=== PATIENT | female | born 1950 | race Caucasian/White ===

== ENCOUNTER 2019-05-30 16:38 | Outpatient (CLI) | payer MEDICARE, OTHER, SELFPAY ==
--- NOTE | 2019-05-30 | CTR_ITS ---
PROCEDURE INFORMATION: Exam: CT Abdomen With Contrast Exam date and time: 05/30/2019 4:57 PM Age: 69 years old Clinical indication: Abdominal pain; Generalized; Prior surgery; Surgery date: 6+ months; Surgery type: Gb; Patient HX: Constant abd pain luq; Additional info: Abdomen pain TECHNIQUE: Imaging protocol: Computed tomography images of the abdomen with intravenous contrast. Total DLP: 438.6 mGy-cm Radiation optimization: All CT scans at this facility use at least one of these dose optimization techniques: automated exposure control; mA and/or kV adjustment per patient size (includes targeted exams where dose is matched to clinical indication); or iterative reconstruction. Contrast material: OMNIPAQUE 300; Contrast volume: 95 ml; Contrast route: IV; COMPARISON: CT abdomen pelvis w con* [id number] 05/31/2018 10:54 AM FINDINGS: Lungs: There is bronchiectasis with mild peribronchial thickening/pneumonitis. There is a mild tree-in-bud appearance in the right middle lobe and lingula. Liver: There is increasing hepatosplenomegaly. No new or enlarging liver nodule. The length the liver now measures 25.3 cm today compared to 20/2 0.8 previously. The spleen now measures 22.5 cm in length today compared 18 cm previously. Gallbladder and bile ducts: There has been a cholecystectomy. There is no common bile duct dilation. Pancreas: Normal. No ductal dilation. Spleen: There is a new wedge-shaped area of decreased density in the spleen concerning for new splenic infarct image 33. Adrenals: Normal. No mass. Kidneys and ureters: There is no evidence of hydronephrosis. There is no evidence of renal calcifications. There is no evidence of hydronephrosis. There is no evidence of renal calcifications. Stomach and bowel: Normal. No obstruction. No mucosal thickening. Intraperitoneal space: Unremarkable. No free air. No significant fluid collection. Lymph nodes: Adenopathy in the upper abdomen is increasing. For example along the gastrohepatic ligament image 17, there is a lymph node measuring 12 mm in short axis today that previously measured 6 mm. A lymph node just medial to the spleen on image 21 today measures 1.4 cm in short axis compared to 2.8 cm previously. Subcentimeter lymph nodes are noted in the retroperitoneum 2. Although these are not all pathologically enlarged, the lymph nodes are more prominent with the largest in the left periaortic space image 35 measuring 1.2 cm in short axis today the previously measured 0.6 cm previously. Vasculature: The aorta demonstrates moderate atherosclerotic calcification. Bones/joints: Disc space narrowing and prominent degenerative changes at L4-L5 are stable. No new fracture or bony destruction. Soft tissues: Unremarkable. Other findings: A small hiatal hernia is present. CT/CT abdomen w con* [id number] IMPRESSION: 1. Mild pneumonitis. 2. There is increasing hepatosplenomegaly. 3. Wedge-shaped hypodensity in the enlarged spleen concerning for new splenic infarct. 4. Increasing adenopathy. Radiation Dose CTDIVOL = (mGy): DLP = 438.6 (mGy-cm)
[2019-05-30] MEDS: iohexol 300 mg/mL 100 mL Btl IV (16:58)
== END 2019-05-30 16:39 | disposition home or self-care (01) ==
LOC: RAD 16:42
PROVIDERS: Family Provider Family Medicine; PCP Family Medicine; Visit Provider Family Medicine
DX: J18.9 Pneumonia, unspecified organism (principal); R16.2 Hepatomegaly with splenomegaly, not elsewhere classified; D73.9 Disease of spleen, unspecified; R59.9 Enlarged lymph nodes, unspecified; R10.84 Generalized abdominal pain
CPT/HCPCS: 74160

== ENCOUNTER 2019-05-30 18:05 | Emergency (ER) | payer MEDICARE, OTHER, SELFPAY ==
[2019-05-30 18:25] VITALS: BP 128/71; PULSE 85; RESP 20; TEMP 36.4; O2SAT 93; BMI 25.4
[2019-05-30 18:54] LABS: Basophils # 0.1 10^3/uL (0.0-0.1); Basophils % 1.2 %; Eosinophils # 0.2 10^3/uL (0.0-0.8); Eosinophils % 3.6 %; Hematocrit 29.8 % (37.0-47.0); Hemoglobin 9.1 g/dL (11.5-15.3); Lymphocytes # 1.2 10^3/uL (0.8-4.8); Lymphocytes % 29.7 %; Mean Corpuscular HGB Conc 30.5 g/dL (30.0-36.0); Mean Corpuscular Hemoglobin 23.2 pg (28.0-34.0); Mean Corpuscular Volume 75.8 fL (81-99); Mean Platelet Volume 9.2 fL (7.4-10.4); Monocytes # 0.4 10^3/uL (0.2-0.9); Monocytes % 9.9 %; Neutrophils # 2.3 10^3/uL (1.8-7.7); Neutrophils % 54.9 %; Nucleated Red Blood Cells % 0 %; Platelet Count 134 10^3/cmm (130-400); Red Blood Count 3.93 10^6/uL (4.1-5.3); Red Cell Distribution Width 18.2 % (12.1-15.1); White Blood Count 4.1 10^3/uL (4.0-10.0)
[2019-05-30 19:12] LABS: Alanine Aminotransferase < 5 U/L (0-33); Albumin Level 4.1 g/dL (3.5-5.2); Alkaline Phosphatase 116 IU/L (35-105); Anion Gap 16.4 (5-19); Aspartate Amino Transferase 6 U/L (0-32); Blood Urea Nitrogen 15 mg/dL (8-23); Calcium 9.5 mg/dL (8.5-10.5); Carbon Dioxide 28 mmol/L (22-29); Chloride 90 mmol/L (98-107); Globulin 2.4 g/dL (1.3-4.6); Glomerular Filtration Rate 71.5 mL/min (90-130); Glucose 114 mg/dL (74-106); Lipase 36 U/L (13-60); Potassium 4.4 mmol/L (3.5-5.1); Sodium 130 mmol/L (136-145); Total Bilirubin 0.6 mg/dL (0.15-1.2); Total Protein 6.5 g/dL (6.6-8.7)
== END 2019-05-30 21:58 | disposition left against medical advice (07) ==
LOC: ER 18:36
PROVIDERS: Emergency Medicine; Emergency Provider Family Medicine; Family Provider Family Medicine; PCP Family Medicine
DX: Z53.21 Procedure and treatment not carried out due to patient leaving prior to being seen by health care provider (principal)
CPT/HCPCS: 36415; 80053; 83690; 85025; 99281

== ENCOUNTER 2019-06-03 15:37 | Outpatient (CLI) | payer MEDICARE, OTHER, SELFPAY ==
--- NOTE | 2019-06-03 15:41 | USCV_ITS ---
Celsa Snowden Age: 69 Gender: F : 1950 Exam Date: 06/03/2019 15:54 Ordering Phys: Adonis Mahajan MD Technologist: Kristy Pereira [place] [facility] [place]: SPLENIC INFAR[place] BP: / HR: 92 Rhythm: Sinus Technical Quality: Adequate MEASUREMENTS (Male / Female) Normal Values 2D ECHO LV Diastolic Diameter PLAX 3.0 cm 4.2 - 5.9 / 3.9 - 5.3 cm LV Systolic Diameter PLAX 1.9 cm IVS Diastolic Thickness 1.3 cm 0.6 - 1.0 / 0.6 - 0.9 cm IVS Systolic Thickness 2.0 cm LVPW Diastolic Thickness 1.6 cm 0.6 - 1.0 / 0.6 - 0.9 cm LVPW Systolic Thickness 1.4 cm LVOT Diameter 2.0 cm LV Ejection Fraction 2D Teich 66.3 % LV Ejection Fraction MOD 2C 53.4 % LV Ejection Fraction 2C AL 54.3 % LA Diameter 3.1 cm LA Width 2.6 cm LA Height 3.6 cm RA Width 3.1 cm RA Height 3.3 cm Aorta at Sinotubular Diameter 2.6 cm M-MODE LV Diastolic Diameter MM 5.5 cm 4.2 - 5.9 / 3.9 - 5.3 cm LV Systolic Diameter MM 3.6 cm LV Ejection Fraction MM Teich 62.8 % IVS Diastolic Thickness MM 0.9 cm 0.6 - 1.0 / 0.6 - 0.9 cm IVS Systolic Thickness MM 1.1 cm LVPW Diastolic Thickness MM 0.9 cm 0.6 - 1.0 / 0.6 - 0.9 cm LVPW Systolic Thickness MM 1.6 cm RV Diastolic Diameter MM 1.5 cm Aortic Annulus Diameter 3.1 cm LA Ao Ratio MM 1.0 MV E Point Septal Separation 1.4 cm DOPPLER AV Peak Velocity 157.0 cm/s LVOT Peak Velocity 101.0 cm/s AV Area Cont Eq vti 2.6 cm squared AV Area Cont Eq pk 2.1 cm squared MV Area PHT 5.5 cm squared Mitral E to A Ratio 0.8 MV E' Velocity 16.0 cm/s Mitral E to MV E' Ratio 4.9 Mitral E to LV E' Lateral Ratio 4.3 Mitral E to LV E' Septal Ratio 5.7 TR Peak Velocity 203.0 cm/s TR Peak Gradient 16.5 mmHg TR Mean Velocity 158.2 cm/s TR Mean Gradient 10.7 mmHg TR Velocity Time Integral 44.8 cm TV Peak E Velocity 73.0 cm/s Right Atrial Pressure 3.0 mmHg Pulmonary Artery Systolic Pressu 19.5 mmHg PV Peak Velocity 71.0 cm/s RV Acceleration Time 0.1 s RV Ejection Time 0.3 s RV AcT/ET 0.5 FINDINGS Left Ventricle Normal left ventricular size and systolic function, EF 60 %. No regional wall motion abnormalities. Grade I/IV diastolic dysfunction (abnormal relaxation filling pattern), normal to mildly elevated filling pressures. Mild left ventricular hypertrophy. Right Ventricle Normal right ventricular size and systolic function. Right Atrium The right atrium is normal in size. Left Atrium The left atrium is normal in size. Mitral Valve Mild mitral annular calcification. Mild mitral valve regurgitation. Aortic Valve Could not be visualized well Tricuspid Valve Trace tricuspid valve regurgitation. Pulmonic Valve Structurally normal pulmonic valve without significant stenosis. There is no pulmonic regurgitation. Pericardium Normal pericardium without effusion. Aorta Normal ascending aorta dimension. CONCLUSIONS Normal left ventricular size and systolic function, EF 60 %. No regional wall motion abnormalities. Grade I/IV diastolic dysfunction (abnormal relaxation filling pattern), normal to mildly elevated filling pressures. Mild left ventricular hypertrophy. Mild mitral annular calcification. Mild mitral valve regurgitation. Trace tricuspid valve regurgitation. There is no pericardial effusion. Possibly normal PA pressure. The calculation could be misleading because of the poor Doppler signals. No previous study is available for comparison. Technically difficult study because of the poor ultrasonic window. Dr Alexander Lerner MD FACC (Electronically Signed) Final Date: 03 June 2019 18:43 S
== END 2019-06-03 15:38 | disposition home or self-care (01) ==
LOC: RAD 15:38
PROVIDERS: Family Provider Family Medicine; PCP Family Medicine; Visit Provider Family Medicine
DX: D73.5 Infarction of spleen (principal); I07.1 Rheumatic tricuspid insufficiency; I34.0 Nonrheumatic mitral (valve) insufficiency
CPT/HCPCS: 93306

== ENCOUNTER 2019-06-09 12:17 | Outpatient (CLI) | payer MEDICARE, OTHER, SELFPAY ==
[2019-06-09 13:00] LABS: Eosinophils # 0.1 10^3/uL (0.0-0.8); Eosinophils % 3.4 %; Hematocrit 27.2 % (37.0-47.0); Hemoglobin 8.2 g/dL (11.5-15.3); Lymphocytes # 1.1 10^3/uL (0.8-4.8); Lymphocytes % 29.2 %; Mean Corpuscular HGB Conc 30.1 g/dL (30.0-36.0); Mean Corpuscular Hemoglobin 23.6 pg (28.0-34.0); Mean Corpuscular Volume 78.2 fL (81-99); Mean Platelet Volume 9.3 fL (7.4-10.4); Monocytes # 0.3 10^3/uL (0.2-0.9); Monocytes % 8.9 %; Neutrophils # 2.2 10^3/uL (1.8-7.7); Neutrophils % 56.7 %; Nucleated Red Blood Cells % 0 %; Platelet Count 126 10^3/cmm (130-400); Red Blood Count 3.48 10^6/uL (4.1-5.3); Red Cell Distribution Width 18.1 % (12.1-15.1); White Blood Count 3.8 10^3/uL (4.0-10.0)
[2019-06-09 13:38] LABS: Slide Review Slide Review Perform
--- NOTE | 2019-06-09 17:14 | ONC CON_ITS ---
Dr. Fuller New Patient Note Patient: Celsa Snowden Unit #: [id number]: 1950 Dicatated By: Macy Fuller M.D.Date of Visit: Jun 09, 2019 Onc MED New Patient/Consult Referring Physician: Dr. Adonis Mahajan M.D. History of Present Illness: Mrs. Celsa Snowden, is a 68-year-old woman with history of hepatosplenomegaly since May 2018, as per patient in April 2018 she went to see her primary care physician for abdominal pain and had abdominal sonogram done which showed hepatosplenomegaly subsequently on 05/31/[address] scan of abdomen pelvis which shows persistent hepatomegaly and splenomegaly. Improved enlargement upper abdominal and wan hepatis lymph nodes. Stable cholelithiasis. Moderate esophageal hiatal hernia. At that time she was referred to Dr. Sanchez invasive manager in [facility], he diagnosed her with nonalcoholic fatty liver and she was advised to lose weight, patient lost about 28 pounds since last year and half follow-up CT scan of abdomen pelvis done on 05/30/2019 showed increasing hepatosplenomegaly, wedge-shaped hypodensity in the enlarged spleen concerning for new splenic infarct. And increasing intra-abdominal adenopathy, lymph node along the gastrohepatic ligament now measuring 1.2 cm compared to 6 mm last year and lymph node just medial to spleen is 1.4 cm compared to 2.8 cm previously.. And liver now measures 25.3 cm compared to 20 cm last year and spleen is 22.5 cm compared to 18 cm last year. And mild pneumonitis. Patient said she was told about anemia last week but denies any palpitation or shortness of breath denies any melena or hematochezia denies any hemoptysis or hematemesis, denies any jaundice. Denies any night sweats or peripheral lymphadenopathy, but intentional weight loss. Patient denies any history of hepatitis in the past patient denies any history of EGD or colonoscopy in the past patient denies any history of anemia in the past denies any history of iron supplement in the past. Patient denies any abdominal pain. Past Medical History: Ms. Obrien medical history consists of chronic back pain, hepatomegaly, hypertension, and splenic infarct. Past Surgical History: Ms. Obrien surgical/procedural history consists of back surgery and cholecystectomy. Medications: ALPRAZolam 1 Tablet (of 0.5 mg) Oral PRN, amLODIPine Besylate 1 Tablet Oral daily, Aspirin Adult 1 Tablet (of 325 mg) Oral daily, hydroCHLOROthiazide 1 Tablet (of 25 mg) Oral daily, Pantoprazole Sodium 1 Tablet (of 40 mg) Tablet, enteric coated Oral daily Allergies: No Known Allergies. Social History: Ms. Snowden is and she is retired. She is a daily smoker who has smoked 1.0 pack/day for 40 years. She has no history of drinking. She has indicated exposure to the following products: cigarettes. Ms. Snowden reports the following support systems: lives alone, lives in own house, supportive family/friends willing to assist with needs, and adequate transportation available for expected visits. Her diet consists of regular meals. She indicates her activity level as: light exercise. Family History: Ms. Snowden's mother at age 80: stroke. Ms. Snowden's father at age 76: colon cancer. Ms. Snowden has 1 sister who is : breast cancer. Review Of Symptoms: Constitutional - Appetite is good and weight has decreased (intentionally). No fever, chills, hot flashes, or night sweats. Energy level is appropriate, ENMT - No sinus congestion/drainage. No mouth sores. No sore throat or difficulty swallowing, Hematologic/Lymphatic - Positive for easy bruising, Respiratory - Positive for shortness of breath. No cough. No pleuritic pain or hemoptysis, Cardiovascular - No angina pain. No palpitations, Gastrointestinal - No nausea or vomiting. No heartburn or acid reflux. No diarrhea or constipation. No blood in the stool or black stools, Genitourinary (F) - No dysuria or hematuria. No urinary frequency. No urgency. Positive for stress incontinence, Musculoskeletal - Positive for back pain, Neurologic - No headache or dizziness. No numbness/paresthesias or other focal neurologic symptoms, Psychiatric - Positive for anxiety. No depression. No insomnia. Vital Signs: Most recent vitals are not available for this patient. Performance Status: 0 - Fully active, able to carry on all predisease activities without restrictions. (ECOG) Physical Examination: ENMT - . No oral exudates, ulcers, masses, thrush or mucositis. Oropharynx clear. Tongue normal, Respiratory - Lungs are clear to auscultation without rhonchi or wheezing, Cardiovascular - Regular rate and rhythm of heart, Abdomen - Non-tender, non-distended, hepatosplenomegaly present, nontender.. Good bowel sounds. No guarding or rebound tenderness. No pulsatile masses, Extremities - no edema or rash. Lab/Imaging: Most recent lab results are not available for this patient. Impression: Hepatosplenomegaly, mild intra-abdominal lymphadenopathy, etiology unclear possibilities including infiltrative hepatic/spleen process. Patient was initially diagnosed with nonalcoholic fatty liver that could be causing portal hypertension thus splenomegaly other possibility could be lymphoproliferative disorder Microscopic anemia most likely due to iron deficiency, due to blood loss ?esophageal varices or iron malabsorption Plan: Discussed with patient regarding her labs white blood count 3.8 hemoglobin 8.2 hematocrit 27.2 platelets 126,000 MCV 78.2 with normal differential and CT scan of abdomen pelvis done on 05/30/2019 which shows progressive splenomegaly with mild intra-abdominal lymphadenopathy. Clinically, patient has no significant symptoms except generalized weakness and fatigue which could be due to microscopic anemia which could be due to chronic blood loss from GI tract or possible esophageal varices, patient has persistent/progressive hepatosplenomegaly, could be due to portal hypertension. Now being followed by invasive manager Dr. Sanchez in [place], [place]. As per patient she was diagnosed with nonalcoholic fatty liver and she was advised to lose weight and she has lost about 28 pounds in one year, her follow-up CT scan of abdomen showed progressive hepatomegaly and splenomegaly instead of improvement. At this point we will discuss her case with Dr. Sanchez or covering physician and also refer her to Dr. Wilkins for EGD and colonoscopy for newly diagnosed iron deficiency anemia, check her iron studies and start on oral iron one tablet daily. And then she will return to clinic in one month with CBC and iron studies. And will make further recommendation after discussing with Dr. Sanchez regarding her hepatomegaly and review her EGD and colonoscopy results. If workup remained inconclusive, may consider referring her to tertiary care center for evaluation workup. Signed By: Macy Fuller M.D. <<Signature on File>>
== END 2019-06-09 12:18 | disposition home or self-care (01) ==
LOC: ONCMED 12:21
PROVIDERS: Family Provider Family Medicine; PCP Family Medicine; Referring Provider Family Medicine; Visit Provider Internal Medicine Hematology & Oncology
DX: R16.2 Hepatomegaly with splenomegaly, not elsewhere classified (principal); G89.29 Other chronic pain; M54.9 Dorsalgia, unspecified; I10 Essential (primary) hypertension; F17.210 Nicotine dependence, cigarettes, uncomplicated; D50.9 Iron deficiency anemia, unspecified; Z79.82 Long term (current) use of aspirin; Z87.01 Personal history of pneumonia (recurrent); Z90.49 Acquired absence of other specified parts of digestive tract
CPT/HCPCS: 36415; 85025; 85045; 99205

== ENCOUNTER 2019-06-10 09:59 | Outpatient (CLI) | payer MEDICARE, OTHER, SELFPAY ==
[2019-06-10 11:21] LABS: Ferritin 74 ng/mL (15-150); Iron 26 ug/dL (37-145); Percent Saturation 6.4 % (20-50); Total Iron Binding Capacity 405 mcg/dl; Unsaturated Iron Binding 379 ug/dL (112-347)
[2019-06-10 11:37] LABS: Vitamin B12 311 pg/mL (232-1245)
[2019-06-10 12:18] LABS: Folate Level 12.1 ng/mL (4.8-37.3)
== END 2019-06-10 10:00 | disposition home or self-care (01) ==
LOC: ONCMED 10:00
PROVIDERS: Family Provider Family Medicine; PCP Family Medicine; Visit Provider Internal Medicine Hematology & Oncology
DX: R16.2 Hepatomegaly with splenomegaly, not elsewhere classified (principal); D64.9 Anemia, unspecified
CPT/HCPCS: 82607; 82728; 82746; 83540; 83550; 85045

== ENCOUNTER 2019-07-15 12:51 | Day surgery (SDC) | payer MEDICARE, OTHER, SELFPAY ==
[2019-07-15 13:12] VITALS: BMI 24.4
--- NOTE | 2019-07-18 07:55 | ANES.PREANE2 ---
Pre-Anesthetic Assessment Pre-Anesthetic Assessment: Height/Weight: Height 1.65 m Weight 66.678 kg Preop Diagnosis: Anemia Proposed Procedure: Operation Date: 07/18/19 10:30 Proposed Procedures p Colonoscopy 00966 D50.9(Not Applicable) - David Wilkins MD Last Intake: 22:00 Social: Packs per day: 1/2 Pack years: 30 Exam: Pre-Anes Outpt Exam: alert, oriented x 3, clear to auscultation bilaterally and regular rate & rhythm Airway: Submandibular: WNL Cervical ROM: WNL MP: 1 Dentition: False CV/HEM: CV/HEM: HTN Comments: rx'd 1y 2 blocks/2 FOS without angina/ANGELES GI: GI: GERD and Hiatus hernia Comments: well controlled with Protonix Musc/skel: Musc/skel: Lower Back Pain Comments: nonradiating Anesthetic Plan: ASA status: 2 Anesthesia: MAC PFSH Anesthesia PFSH: Medical History (Updated 07/14/19 @ 15:04 by David Wilkins MD) Essential (primary) hypertension Splenic infarct Social History (Updated 07/14/19 @ 14:22 by INGA Fleming) Smoking and tobacco status: current every day smoker Alcohol intake: former Marital status: Number of children: 2 Number of grandchildren: 3 service: No History of recent travel: No Current gender identity: Female Data Anesthesia Cardiac Studies: No Data to Display
[2019-07-18 08:14] VITALS: BP 121/61; PULSE 70; RESP 16; TEMP 36.5; O2SAT 99
[2019-07-18] MEDS: sodium chloride 0.9% 1,000 ML 30 ML (08:27)
--- NOTE | 2019-07-18 09:28 | W.PM.OPSUD ---
Surgery/Procedure H&P Update DATE OF PROCEDURE: July 18, 2019 DATE H&P PERFORMED: 07/14/19 PREOP DIAGNOSIS: e PLANNED PROCEDURE: Operation Date: 07/18/19 10:30 Proposed Procedures p Colonoscopy 22760 D50.9(Not Applicable) - David Wilkins MD
[2019-07-18 12:13] VITALS: BP 137/51; PULSE 84; RESP 16; TEMP 36.2; O2SAT 100
[2019-07-18 12:23] VITALS: BP 100/60; PULSE 90; RESP 16; O2SAT 97
--- NOTE | 2019-07-18 12:32 | ANE.PACU2 ---
 Inpatient post-anesthesia follow up: Airway intact: Yes Vital signs: Temperature 97.2 F Pulse Rate 90 Respiratory Rate 16 Blood Pressure 100/60 Pulse Oximetry 97 Oxygen Delivery Me thod Room Air Oxygen Flow Rate 4 Fraction of Inspir ed Oxygen Hydration adequate: Yes Nausea and vomiting: No Pain level: 1 Mental status: Baseline
[2019-07-18 12:34] VITALS: BP 100/73; PULSE 82; RESP 16; O2SAT 94
[2019-07-19 06:13] LABS: H. Pylori / CLO Test Negative
== END 2019-07-18 12:46 | disposition home or self-care (01) ==
PROVIDERS: Family Provider Family Medicine; PCP Family Medicine; Visit Provider Internal Medicine
PROC: 0DJ08ZZ Inspection of Upper Intestinal Tract, Via Natural or Artificial Opening Endoscopic (ICD-10-PCS; CPT 43235; principal; 2019-07-18 10:30)
PROC: 0DJD8ZZ Inspection of Lower Intestinal Tract, Via Natural or Artificial Opening Endoscopic (ICD-10-PCS; CPT 45378; 2019-07-18 10:30)
DX: D50.9 Iron deficiency anemia, unspecified (principal); Z79.82 Long term (current) use of aspirin; I10 Essential (primary) hypertension; F17.210 Nicotine dependence, cigarettes, uncomplicated; K57.30 Diverticulosis of large intestine without perforation or abscess without bleeding; K29.70 Gastritis, unspecified, without bleeding
CPT/HCPCS: 12345; 43239; 45378; 87077; J0171; J2704; J7030

== ENCOUNTER 2019-08-19 13:27 | Outpatient (CLI) | payer MEDICARE, OTHER, SELFPAY ==
--- NOTE | 2019-08-19 15:01 | ONC FU_ITS ---
Dr. Fuller follow up note Patient: Celsa Snowden Unit #: [id number]: 1950 Dicatated By: Mayc Fuller M.D.Date of Visit:Aug 19, 2019 Onc Med Follow-up/Prog Note History of Present Illness: Mrs. Celsa Snowden, is a 69-year-old woman with history of hepatosplenomegaly since May 2018, as per patient in April 2018 she went to see her primary care physician for abdominal pain and had abdominal sonogram done which showed hepatosplenomegaly subsequently on 05/31/[address] scan of abdomen pelvis which shows persistent hepatomegaly and splenomegaly. Improved enlargement upper abdominal and wan hepatis lymph nodes. Stable cholelithiasis. Moderate esophageal hiatal hernia. At that time she was referred to Dr. Sanchez research test engine evaluator in [facility], he diagnosed her with nonalcoholic fatty liver and she was advised to lose weight, patient lost about 28 pounds since last year and half follow-up CT scan of abdomen pelvis done on 05/30/2019 showed increasing hepatosplenomegaly, wedge-shaped hypodensity in the enlarged spleen concerning for new splenic infarct. And increasing intra-abdominal adenopathy, lymph node along the gastrohepatic ligament now measuring 1.2 cm compared to 6 mm last year and lymph node just medial to spleen is 1.4 cm compared to 2.8 cm previously.. And liver now measures 25.3 cm compared to 20 cm last year and spleen is 22.5 cm compared to 18 cm last year. And mild pneumonitis. Patient said she was told about anemia last week but denies any palpitation or shortness of breath denies any melena or hematochezia denies any hemoptysis or hematemesis, denies any jaundice. Denies any night sweats or peripheral lymphadenopathy, but intentional weight loss. Patient denies any history of hepatitis in the past patient denies any history of EGD or colonoscopy in the past patient denies any history of anemia in the past denies any history of iron supplement in the past. Patient denies any abdominal pain. Came for follow-up, patient said about month ago she developed progressive left abdominal pain and for which she was referred to Dr. Atkins stringing machine tender at [facility] in [place] as her research test engine evaluator Dr. Sanchez was not available. And Dr. Atkins referred her to Dr. 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 Lost some weight since surgery. Denies any peripheral lymphadenopathy Medications: ALPRAZolam 1 Tablet (of 0.5 mg) Oral PRN, Ambien 1 Tablet (of 10 mg) Oral daily, Aspirin Adult 1 Tablet (of 325 mg) Oral daily, Ferrous Sulfate 1 Tablet (of 325 (65 fe) mg) Oral daily, hydroCHLOROthiazide 1 Tablet (of 25 mg) Oral daily, Pantoprazole Sodium 1 Tablet (of 40 mg) Tablet, enteric coated Oral daily Allergies: No Known Allergies. Review of Systems: Constitutional - Appetite is good and weight has decreased (intentionally). No fever, chills, hot flashes, or night sweats. Energy level is appropriate, ENMT - No sinus congestion/drainage. No mouth sores. No sore throat or difficulty swallowing, Hematologic/Lymphatic - Positive for easy bruising, Respiratory - Positive for shortness of breath. No cough. No pleuritic pain or hemoptysis, Cardiovascular - No angina pain. No palpitations, Gastrointestinal - No nausea or vomiting. No heartburn or acid reflux. No diarrhea or constipation. No blood in the stool or black stools, Genitourinary (F) - No dysuria or hematuria. No urinary frequency. No urgency. Positive for stress incontinence, Musculoskeletal - Positive for back pain, Neurologic - No headache or dizziness. No numbness/paresthesias or other focal neurologic symptoms, Psychiatric - Positive for anxiety. No depression. No insomnia. Vital Signs: Performed on Aug 19, 2019 13:37 Height - 64 in Weight - 149.0 lbs (HIGH) BSA - 1.73 sq.m BMI - 25.58 Temperature - 97.1 F (LOW) Pulse - 73 /min Respiration - 17 /min BP - 134/57 mm(hg) O2 Sat - 93 % (LOW) Pain - 4 Performance Status: 1 - No physically strenuous activity, but ambulatory and able to carry out light or sedentary work (e.g. office work, light house work). (ECOG) Physical Examination: ENMT - denies mouth sores or thrush, Respiratory - Lungs are clear , no wheezing, Cardiovascular - denies tachycardia, Abdomen - no abdominal pain, well-healing postsplenectomysurgical scar,, Extremities - no visible edema or rash. Lab/Imaging: Test performed on Jun 10, 2019 10:05 Ferritin 74 ng/mL Iron 26 ug/dL Vitamin B12 311 pg/mL UIBC 379 ug/dL Test performed on Jun 09, 2019 12:30 WBC 3.8 10 3/uL RBC 3.48 10 6/uL HGB 8.2 g/dL HCT 27.2 % MCV 78.2 fL MCH 23.6 pg MCHC 30.1 g/dL RDW 18.1 % Platelet Count 126 10 3/cmm MPV 9.3 fL Neutrophils 2.2 10 3/uL Lymphocytes 1.1 10 3/uL Monocytes 0.3 10 3/uL Eosinophils 0.1 10 3/uL Basophils 0.0 10 3/uL Neutrophil % 56.7 % Lymphocyte % 29.2 % Monocyte % 8.9 % Eosinophil % 3.4 % Basophils % 1.0 % CBC Slide Review Slide Review Perform SLIDE REVIEW AGREES WITH AUTOMATED RESULTS Impression: 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 on 08/05/2019 final pathology report showed small to intermediate size lymphocytes with condensed chromatin and inconspicuous nucleoli and flow cytometry demonstrate a kappa restricted, CD20 positive, CD5 negative, CD10 negative B-cell population consistent with splenic marginal zone lymphoma Hepatomegaly due to nonalcoholic fatty liver Iron deficiency anemia, on oral iron Mild leukopenia/thrombocytopenia probably was due to splenic sequestration now resolved after splenectomy done on 08/05/2019 as her CBC done on 08/07/2019 showed white blood count 14.1 hemoglobin 17.5 hematocrit 26.7 platelets 319,000 MCV 79.8 Plan: Discussed with patient regarding her newly diagnosed splenic marginal zone lymphoma, which was incidental finding patient has no B symptoms, patient has no peripheral lymphadenopathy, patient has no evidence of autoimmune hemolysis or ITP. At this point we will consider, repeating CBC, iron studies B12 folic acid, CMP, LDH, serum immunoglobulins, serum protein electrophoresis, hepatitis profile. If above-mentioned workup shows iron deficiency and no other abnormality then will consider parenteral iron as patient may have iron malabsorption and also follow GI workup, as in the past patient was referred to Dr. Wilkins for EGD and colonoscopy. If there is no evidence of iron deficiency, then will consider bone marrow evaluation to rule out bone marrow involvement with low-grade lymphoma. We will also consider CT PET scan to assess disease status as her CT scan showed mild to moderate intra-abdominal lymphadenopathy. Patient return to clinic in one month with CBC, and for further discussion Signed By: Macy Fuller M.D. <<Signature on File>>
== END 2019-08-19 13:28 | disposition home or self-care (01) ==
LOC: ONCMED 13:27
PROVIDERS: Family Provider Family Medicine; PCP Family Medicine; Visit Provider Internal Medicine Hematology & Oncology
DX: C83.07 Small cell B-cell lymphoma, spleen (principal); K76.0 Fatty (change of) liver, not elsewhere classified; D50.9 Iron deficiency anemia, unspecified; Z90.81 Acquired absence of spleen
CPT/HCPCS: 99214

== ENCOUNTER 2019-09-16 11:50 | Outpatient (CLI) | payer MEDICARE, OTHER, SELFPAY ==
[2019-09-16 12:28] LABS: Basophils # 0.2 10^3/uL (0.0-0.1); Basophils % 1.8 %; Eosinophils # 0.2 10^3/uL (0.0-0.8); Eosinophils % 2.5 %; Hematocrit 40.5 % (37.0-47.0); Hemoglobin 11.9 g/dL (11.5-15.3); Lymphocytes # 3.6 10^3/uL (0.8-4.8); Lymphocytes % 36.6 %; Mean Corpuscular HGB Conc 29.4 g/dL (30.0-36.0); Mean Corpuscular Hemoglobin 23.6 pg (28.0-34.0); Mean Corpuscular Volume 80.4 fL (81-99); Mean Platelet Volume 10.3 fL (7.4-10.4); Monocytes # 1.1 10^3/uL (0.2-0.9); Monocytes % 11.3 %; Neutrophils # 4.7 10^3/uL (1.8-7.7); Neutrophils % 47.6 %; Nucleated Red Blood Cells % 0 %; Platelet Count 339 10^3/cmm (130-400); Red Blood Count 5.04 10^6/uL (4.1-5.3); Red Cell Distribution Width 21.6 % (12.1-15.1); White Blood Count 9.8 10^3/uL (4.0-10.0)
[2019-09-16 12:39] LABS: Alanine Aminotransferase 13 U/L (0-33); Albumin Level 4.5 g/dL (3.5-5.2); Alkaline Phosphatase 123 IU/L (35-105); Anion Gap 18.2 (5-19); Aspartate Amino Transferase 9 U/L (0-32); Blood Urea Nitrogen 8 mg/dL (8-23); Calcium 10.5 mg/dL (8.5-10.5); Carbon Dioxide 26 mmol/L (22-29); Chloride 91 mmol/L (98-107); Ferritin 36 ng/mL (15-150); Globulin 2.8 g/dL (1.3-4.6); Glomerular Filtration Rate 123.1 mL/min (90-130); Glucose 98 mg/dL (65-115); Iron 381 ug/dL (37-145); Lactate Dehydrogenase 152 U/L (135-214); Osmolality Calculated 268 mOsm/kg (285-295); Percent Saturation 71.8 % (20-50); Potassium 4.2 mmol/L (3.5-5.1); Sodium 131 mmol/L (136-145); Total Bilirubin 0.4 mg/dL (0.15-1.2); Total Iron Binding Capacity 530 mcg/dl; Total Protein 7.3 g/dL (6.6-8.7); Unsaturated Iron Binding 149 ug/dL (112-347)
[2019-09-16 12:55] LABS: Vitamin B12 575 pg/mL (232-1245)
[2019-09-17 01:47] LABS: Immunoglobulin IGA 57 mg/dL (70-400); Immunoglobulin IGG 604 mg/dL (700-1600); Immunoglobulin IGM 215 mg/dL (40-230)
[2019-09-17 02:07] LABS: Hepatitis A Antibody IgM Non-Reactive (Nonreactive); Hepatitis B Core AB, Total Non-Reactive (Nonreactive); Hepatitis B Surface AB 3.5 (0-8.5); Hepatitis B Surface Antigen Non-Reactive (Nonreactive); Hepatitis C Virus Antibody Non-Reactive (Nonreactive)
[2019-09-17 04:19] LABS: Folate Level > 20.0 ng/mL (4.8-37.3)
[2019-09-17 10:12] LABS: PROTEIN, TOTAL 6.6 g/dL (6.1-8.1)
[2019-09-19 14:35] LABS: ALPHA 1 GLOBULIN 0.3 g/dL (0.2-0.3); ALPHA 2 GLOBULIN 0.9 g/dL (0.5-0.9); BETA 1 GLOBULIN 0.6 g/dL (0.4-0.6); BETA 2 GLOBULIN 0.2 g/dL (0.2-0.5); GAMMA GLOBULIN 0.6 g/dL (0.8-1.7)
== END 2019-09-16 11:51 | disposition home or self-care (01) ==
LOC: ONCMED 11:55
PROVIDERS: PCP Family Medicine; Visit Provider Internal Medicine Hematology & Oncology
DX: C83.07 Small cell B-cell lymphoma, spleen (principal); R16.2 Hepatomegaly with splenomegaly, not elsewhere classified; I10 Essential (primary) hypertension; D73.5 Infarction of spleen; D50.9 Iron deficiency anemia, unspecified; K75.9 Inflammatory liver disease, unspecified
CPT/HCPCS: 80053; 82607; 82728; 82746; 82784; 83540; 83550; 83615; 84155; 84165; 85025; 86705; 86706; 86709; 86803; 87340

== ENCOUNTER 2019-09-19 15:17 | Outpatient (CLI) | payer MEDICARE, OTHER, SELFPAY ==
--- NOTE | 2019-09-19 17:03 | ONC FU_ITS ---
Dr. Fuller follow up note Patient: Celsa Snowden Unit #: [id number]: 1950 Dicatated By: Macy Fuller M.D.Date of Visit:September 19, 2019 Onc Med Follow-up/Prog Note History of Present Illness: Mrs. Celsa Snowden, is a 69-year-old woman with history of hepatosplenomegaly since May 2018, as per patient in April 2018 she went to see her primary care physician for abdominal pain and had abdominal sonogram done which showed hepatosplenomegaly subsequently on 05/31/[address] scan of abdomen pelvis which shows persistent hepatomegaly and splenomegaly. Improved enlargement upper abdominal and wan hepatis lymph nodes. Stable cholelithiasis. Moderate esophageal hiatal hernia. At that time she was referred to Dr. Sanchez instrument inspector in [facility], he diagnosed her with nonalcoholic fatty liver and she was advised to lose weight, patient lost about 28 pounds since last year and half follow-up CT scan of abdomen pelvis done on 05/30/2019 showed increasing hepatosplenomegaly, wedge-shaped hypodensity in the enlarged spleen concerning for new splenic infarct. And increasing intra-abdominal adenopathy, lymph node along the gastrohepatic ligament now measuring 1.2 cm compared to 6 mm last year and lymph node just medial to spleen is 1.4 cm compared to 2.8 cm previously.. And liver now measures 25.3 cm compared to 20 cm last year and spleen is 22.5 cm compared to 18 cm last year. And mild pneumonitis. Patient said she was told about anemia last week but denies any palpitation or shortness of breath denies any melena or hematochezia denies any hemoptysis or hematemesis, denies any jaundice. Denies any night sweats or peripheral lymphadenopathy, but intentional weight loss. Patient denies any history of hepatitis in the past patient denies any history of EGD or colonoscopy in the past patient denies any history of anemia in the past denies any history of iron supplement in the past. Patient denies any abdominal pain. developed progressive left abdominal pain and for which she was referred to Dr. Atkins doughnut icer machine at [facility] in [place] as her instrument inspector Dr. Sanchez was not available. And Dr. tAkins referred her to Dr. 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, flow cytometry showed kappa restricted, CD20 positive, CD5 negative, CD10 negative B-cell population consistent with splenic marginal zone lymphoma CT PET scan done on 09/10/2019 showed, negative for active lymphoma, status post splenectomy, Labs checked on 09/16/2019, showed IgG 604, IgM 215, IgA 57, ferritin 36 iron 381 TIBC 5:30 B12 575 iron saturation 71.8 Came for follow-up, denies any specific complaints, no fever or chills, no nausea or vomiting, no night sweats, no weight loss, no recent fever, no peripheral lymphadenopathy, no abdominal fullness, no jaundice Medications: ALPRAZolam 1 Tablet (of 0.5 mg) Oral PRN, Ambien 1 Tablet (of 10 mg) Oral daily, Aspirin Adult 1 Tablet (of 325 mg) Oral daily, Ferrous Sulfate 1 Tablet (of 325 (65 fe) mg) Oral daily, hydroCHLOROthiazide 1 Tablet (of 25 mg) Oral daily, Pantoprazole Sodium 1 Tablet (of 40 mg) Tablet, enteric coated Oral daily Allergies: No Known Allergies. Review of Systems: Review of Systems is not available for this patient. Vital Signs: Performed on September 19, 2019 15:37 Height - 64.00 in Weight - 149.6 lbs (HIGH) BSA - 1.73 sq.m BMI - 25.68 Temperature - 97.3 F (LOW) Pulse - 82 /min Respiration - 17 /min BP - 136/58 mm(hg) O2 Sat - 95 % (LOW) Pain - 0 Performance Status: 0 - Fully active, able to carry on all predisease activities without restrictions. (ECOG) Physical Examination: ENMT - no mouth sores, no jaundice, Respiratory - Lungs are clear, Cardiovascular - Regular rate and rhythm of heart, Abdomen - bowel sounds present, soft, Extremities - no edema or rash, no peripheral lymphadenopathy. Lab/Imaging: Test performed on Jun 10, 2019 10:05 Ferritin 74 ng/mL Iron 26 ug/dL Vitamin B12 311 pg/mL UIBC 379 ug/dL Test performed on Jun 09, 2019 12:30 WBC 3.8 10 3/uL RBC 3.48 10 6/uL HGB 8.2 g/dL HCT 27.2 % MCV 78.2 fL MCH 23.6 pg MCHC 30.1 g/dL RDW 18.1 % Platelet Count 126 10 3/cmm MPV 9.3 fL Neutrophils 2.2 10 3/uL Lymphocytes 1.1 10 3/uL Monocytes 0.3 10 3/uL Eosinophils 0.1 10 3/uL Basophils 0.0 10 3/uL Neutrophil % 56.7 % Lymphocyte % 29.2 % Monocyte % 8.9 % Eosinophil % 3.4 % Basophils % 1.0 % CBC Slide Review Slide Review Perform SLIDE REVIEW AGREES WITH AUTOMATED RESULTS Impression: 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 on 08/05/2019 final pathology report showed small to intermediate size lymphocytes with condensed chromatin and inconspicuous nucleoli and flow cytometry demonstrate a kappa restricted, CD20 positive, CD5 negative, CD10 negative B-cell population consistent with splenic marginal zone lymphoma Hepatomegaly due to nonalcoholic fatty liver CT PET scan done on 09/10/2019 showed no evidence of active lymphoma, status post splenectomy Iron deficiency anemia, on oral iron, discontinued on 09/16/2019 with normalization of hemoglobin Mild leukopenia/thrombocytopenia probably was due to splenic sequestration now resolved after splenectomy done on 08/05/2019 as her CBC done on 08/07/2019 showed white blood count 14.1 hemoglobin 7.5 hematocrit 26.7 platelets 319,000 MCV 79.8 Plan: Discussed with patient regarding her labs white blood count 9.8 hemoglobin 11.9 g hematocrit 40.5 platelets 339,000 CMP within normal limits LDH 152, staging CT PET scan shows no evidence of active lymphoma, status post splenectomy Clinically, patient is doing well with no signs symptoms suggestive of progressive or active lymphoma, no B symptoms, no peripheral lymphadenopathy, staging CT PET scan showed no evidence of active lymphoma. Patient was incidentally found to have splenic marginal zone lymphoma as recently underwent splenectomy for abdominal pain. Treatment options including observation was discussed patient's SMZLSG prognostic index calculated based on her hemoglobin, platelets, LDH and lymphadenopathy came back 4.41 e.g. low risk, with a 5 year survival over 94% so, he staging CT PET scan shows no evidence of disease, follow-up lab showed normalization of pancytopenia and overall patient is feeling great. At this point we will monitor her and then she will return to clinic in 3 months with CBC CMP and LDH. And she was also advised to discontinue iron, and we will monitor labs in case there is a drop in her iron stores or hemoglobin, we may consider parenteral iron. Signed By: Macy Fuller M.D. <<Signature on File>>
== END 2019-09-19 15:18 | disposition home or self-care (01) ==
LOC: ONCMED 15:22
PROVIDERS: PCP Family Medicine; Visit Provider Internal Medicine Hematology & Oncology
DX: C83.07 Small cell B-cell lymphoma, spleen (principal); Z90.81 Acquired absence of spleen; K76.0 Fatty (change of) liver, not elsewhere classified; D50.9 Iron deficiency anemia, unspecified
CPT/HCPCS: G0463

== ENCOUNTER 2019-12-15 12:32 | Outpatient (CLI) | payer MEDICARE, OTHER, SELFPAY ==
[2019-12-15 13:00] LABS: Basophils # 0.1 10^3/uL (0.0-0.1); Basophils % 1.3 %; Eosinophils # 0.1 10^3/uL (0.0-0.8); Eosinophils % 1.3 %; Hemoglobin 12.5 g/dL (11.5-15.3); Lymphocytes # 3.1 10^3/uL (0.8-4.8); Lymphocytes % 29.6 %; Mean Corpuscular HGB Conc 31.3 g/dL (30.0-36.0); Mean Corpuscular Hemoglobin 24.4 pg (28.0-34.0); Mean Platelet Volume 9.8 fL (7.4-10.4); Monocytes # 1.2 10^3/uL (0.2-0.9); Monocytes % 11.8 %; Neutrophils # 5.89 10^3/uL (1.8-7.7); Neutrophils % 55.8 %; Nucleated Red Blood Cells % 0 %; Platelet Count 469 10^3/cmm (130-400); Red Blood Count 5.13 10^6/uL (4.1-5.3); Red Cell Distribution Width 19.3 % (12.1-15.1); White Blood Count 10.6 10^3/uL (4.0-10.0)
[2019-12-15 13:21] LABS: Alanine Aminotransferase 12 U/L (0-33); Albumin Level 4.4 g/dL (3.5-5.2); Alkaline Phosphatase 132 IU/L (35-105); Anion Gap 13.3 (5-19); Aspartate Amino Transferase 8 U/L (0-32); Blood Urea Nitrogen 14 mg/dL (8-23); Calcium 9.2 mg/dL (8.5-10.5); Carbon Dioxide 28 mmol/L (22-29); Chloride 94 mmol/L (98-107); Globulin 2.9 g/dL (1.3-4.6); Glomerular Filtration Rate 123.1 mL/min (90-130); Glucose 105 mg/dL (65-115); Lactate Dehydrogenase 149 U/L (135-214); Osmolality Calculated 269 mOsm/kg (285-295); Potassium 4.3 mmol/L (3.5-5.1); Sodium 131 mmol/L (136-145); Total Bilirubin 0.5 mg/dL (0.15-1.2); Total Protein 7.3 g/dL (6.6-8.7)
== END 2019-12-15 12:33 | disposition home or self-care (01) ==
LOC: ONCMED 12:36
PROVIDERS: PCP Family Medicine; Visit Provider Internal Medicine Hematology & Oncology
DX: C83.07 Small cell B-cell lymphoma, spleen (principal); R16.2 Hepatomegaly with splenomegaly, not elsewhere classified
CPT/HCPCS: 80053; 83615; 85025

== ENCOUNTER 2019-12-19 12:24 | Outpatient (CLI) | payer MEDICARE, OTHER, SELFPAY ==
--- NOTE | 2019-12-20 18:47 | ONC FU_ITS ---
Dr. Fuller follow up note Patient: Celsa Snowden Unit #: [id number]: 1950 Dicatated By: Macy Fuller M.D.Date of Visit:Dec 19, 2019 Onc Med Follow-up/Prog Note History of Present Illness: Mrs. Celsa Snowden, is a 69-year-old woman with history of hepatosplenomegaly since May 2018, as per patient in April 2018 she went to see her primary care physician for abdominal pain and had abdominal sonogram done which showed hepatosplenomegaly subsequently on 05/31/[address] scan of abdomen pelvis which shows persistent hepatomegaly and splenomegaly. Improved enlargement upper abdominal and wan hepatis lymph nodes. Stable cholelithiasis. Moderate esophageal hiatal hernia. At that time she was referred to Dr. Sanchez asphalt heater operator in [facility], he diagnosed her with nonalcoholic fatty liver and she was advised to lose weight, patient lost about 28 pounds since last year and half follow-up CT scan of abdomen pelvis done on 05/30/2019 showed increasing hepatosplenomegaly, wedge-shaped hypodensity in the enlarged spleen concerning for new splenic infarct. And increasing intra-abdominal adenopathy, lymph node along the gastrohepatic ligament now measuring 1.2 cm compared to 6 mm last year and lymph node just medial to spleen is 1.4 cm compared to 2.8 cm previously.. And liver now measures 25.3 cm compared to 20 cm last year and spleen is 22.5 cm compared to 18 cm last year. And mild pneumonitis. Patient said she was told about anemia last week but denies any palpitation or shortness of breath denies any melena or hematochezia denies any hemoptysis or hematemesis, denies any jaundice. Denies any night sweats or peripheral lymphadenopathy, but intentional weight loss. Patient denies any history of hepatitis in the past patient denies any history of EGD or colonoscopy in the past patient denies any history of anemia in the past denies any history of iron supplement in the past. Patient denies any abdominal pain. developed progressive left abdominal pain and for which she was referred to Dr. Atkins volunteer services specialist at [facility] in [place] as her asphalt heater operator Dr. Sanchez was not available. And Dr. Atkins referred her to Dr. 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 Medications: ALPRAZolam 1 Tablet (of 0.5 mg) Oral PRN, Ambien 1 Tablet (of 10 mg) Oral daily, Aspirin Adult 1 Tablet (of 325 mg) Oral daily, hydroCHLOROthiazide 1 Tablet (of 25 mg) Oral daily, Pantoprazole Sodium 1 Tablet (of 40 mg) Tablet, enteric coated Oral daily Allergies: No Known Allergies. Review of Systems: Constitutional - Appetite is good and weight has increased. No fever, chills, hot flashes, or night sweats. Energy level is appropriate, ENMT - No sinus congestion/drainage. No mouth sores. No sore throat or difficulty swallowing, Hematologic/Lymphatic - Positive for easy bruising, Respiratory - Positive for occasional shortness of breath. No cough. No pleuritic pain or hemoptysis, Cardiovascular - No angina pain. No palpitations, Gastrointestinal - No nausea or vomiting. No heartburn or acid reflux. No diarrhea or constipation. No blood in the stool or black stools, Genitourinary (F) - No dysuria or hematuria. Positive for urinary frequency. No urgency. Positive for stress incontinence, Musculoskeletal - Positive for back pain, Neurologic - No headache or dizziness. No numbness/paresthesias or other focal neurologic symptoms, Psychiatric - Positive for anxiety. No depression. No insomnia. Vital Signs: Performed on Dec 19, 2019 12:45 Height - 64.00 in Weight - 161.8 lbs (HIGH) BSA - 1.79 sq.m BMI - 27.77 Temperature - 98.4 F Pulse - 95 /min Respiration - 20 /min BP - 140/64 mm(hg) O2 Sat - 95 % (LOW) Pain - 0 Performance Status: 0 - Fully active, able to carry on all predisease activities without restrictions. (ECOG) Physical Examination: ENMT - No mouth sores, no thrush, no jaundice, no peripheral lymphadenopathy, Respiratory - Lungs are clear, Cardiovascular - Regular rate and rhythm of heart, Abdomen - Soft, bowel sounds present, Extremities - No visible edema. Lab/Imaging: Test performed on September 16, 2019 12:02 Ferritin 36 ng/mL Iron 381 mcg/dL LDH (Total) 152 U/L Sodium 131 mmol/L Vitamin B12 575 pg/mL Iron Binding Capacity (TIBC) 530 mcg/dl Potassium 4.2 mmol/L % Iron Saturation 71.8 % Chloride 91 mmol/L CO2 26 mmol/L UIBC 149 mcg/dL Anion Gap 18.2 BUN 8 mg/dL Creatinine 0.5 mg/dL Cr Clearance (Est) 116.96 mL/min eGFR 123.1 mL/min Glucose 98 mg/dL Calcium 10.5 mg/dL Protein, Total 7.3 g/dL Albumin 4.5 g/dL Globulin 2.8 g/dL Bilirubin, Total 0.4 mg/dL ALT (SGPT) 13 U/L AST (SGOT) 9 U/L Alkaline Phosphatase 123 IU/L WBC 9.8 10 3/uL RBC 5.04 10 6/uL HGB 11.9 g/dL HCT 40.5 % MCV 80.4 fL MCH 23.6 pg MCHC 29.4 g/dL RDW 21.6 % Platelet Count 339 10 3/cmm MPV 10.3 fL Neutrophils 4.7 10 3/uL Lymphocytes 3.6 10 3/uL Monocytes 1.1 10 3/uL Eosinophils 0.2 10 3/uL Basophils 0.2 10 3/uL Neutrophil % 47.6 % Lymphocyte % 36.6 % Monocyte % 11.3 % Eosinophil % 2.5 % Basophils % 1.8 % IgG 604 mg/dL IgA 57 mg/dL IgM 215 mg/dL Impression: 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 on 08/05/2019 final pathology report showed small to intermediate size lymphocytes with condensed chromatin and inconspicuous nucleoli and flow cytometry demonstrate a kappa restricted, CD20 positive, CD5 negative, CD10 negative B-cell population consistent with splenic marginal zone lymphoma Hepatomegaly due to nonalcoholic fatty liver CT PET scan done on 09/10/2019 showed no evidence of active lymphoma, status post splenectomy Iron deficiency anemia, on oral iron, discontinued on 09/16/2019 with normalization of hemoglobin Mild leukopenia/thrombocytopenia probably was due to splenic sequestration now resolved after splenectomy done on 08/05/2019 as her CBC done on 08/07/2019 showed white blood count 14.1 hemoglobin 7.5 hematocrit 26.7 platelets 319,000 MCV 79.8 Plan: Discussed with patient regarding her labs white blood count 10.6 hemoglobin 12.5 hematocrit 40 platelets 469,000 CMP within normal limit except sodium 131 Clinically, patient is doing well with no B symptoms, no peripheral lymphadenopathy or abdominal fullness e.g. organomegaly. Her lab work-up CBC is normalized except mild leukocytosis and thrombocytosis probably due to splenectomy, we will continue to monitor she will return to clinic in 6 months with CBC CMP and LDH Mild hyponatremia probably dilutional, patient was advised to restrict free water intake, will monitor Signed By: Macy Fuller M.D. <<Signature on File>>
== END 2019-12-19 12:25 | disposition home or self-care (01) ==
LOC: ONCMED 12:27
PROVIDERS: PCP Family Medicine; Visit Provider Internal Medicine Hematology & Oncology
DX: C83.07 Small cell B-cell lymphoma, spleen (principal); R16.2 Hepatomegaly with splenomegaly, not elsewhere classified; I10 Essential (primary) hypertension; D73.5 Infarction of spleen
CPT/HCPCS: G0463

== ENCOUNTER 2020-07-09 09:13 | Outpatient (CLI) | payer MEDICARE, OTHER, SELFPAY ==
[2020-07-09 10:01] LABS: Basophils # 0.1 10^3/uL (0.0-0.1); Basophils % 1.2 %; Eosinophils # 0.1 10^3/uL (0.0-0.8); Eosinophils % 0.9 %; Hematocrit 41.9 % (37.0-47.0); Hemoglobin 13.1 g/dL (11.5-15.3); Lymphocytes # 2.8 10^3/uL (0.8-4.8); Lymphocytes % 24.7 %; Mean Corpuscular HGB Conc 31.3 g/dL (30.0-36.0); Mean Corpuscular Hemoglobin 26.2 pg (28.0-34.0); Mean Corpuscular Volume 83.8 fL (81-99); Mean Platelet Volume 9.8 fL (7.4-10.4); Monocytes # 1.2 10^3/uL (0.2-0.9); Monocytes % 10.7 %; Neutrophils # 7.03 10^3/uL (1.8-7.7); Neutrophils % 62.1 %; Nucleated Red Blood Cells % 0 %; Platelet Count 548 10^3/cmm (130-400); Red Cell Distribution Width 17.3 % (12.1-15.1); White Blood Count 11.3 10^3/uL (4.0-10.0)
[2020-07-09 10:22] LABS: Alanine Aminotransferase < 5 U/L (0-33); Albumin Level 4.2 g/dL (3.5-5.2); Alkaline Phosphatase 141 IU/L (35-105); Aspartate Amino Transferase 5 U/L (0-32); Blood Urea Nitrogen 13 mg/dL (8-23); Calcium 9.6 mg/dL (8.5-10.5); Carbon Dioxide 27 mmol/L (22-29); Chloride 95 mmol/L (98-107); Globulin 2.8 g/dL (1.3-4.6); Glomerular Filtration Rate 99.4 mL/min (90-130); Glucose 105 mg/dL (65-115); Lactate Dehydrogenase 202 U/L (135-214); Osmolality Calculated 276 mOsm/kg (285-295); Sodium 133 mmol/L (136-145); Total Bilirubin 0.4 mg/dL (0.15-1.2)
== END 2020-07-09 09:14 | disposition home or self-care (01) ==
LOC: ONCMED 09:17
PROVIDERS: PCP Family Medicine; Visit Provider Internal Medicine Hematology & Oncology
DX: C83.07 Small cell B-cell lymphoma, spleen (principal); R16.2 Hepatomegaly with splenomegaly, not elsewhere classified
CPT/HCPCS: 36415; 80053; 83615; 85025

== ENCOUNTER 2020-07-11 05:30 | Outpatient (CLI) | payer MEDICARE, OTHER, SELFPAY ==
--- NOTE | 2020-07-13 13:25 | ONC FU_ITS ---
Dr. Fuller follow up note Patient: Celsa Snowden Unit #: [id number]: 1950 Dicatated By: Macy Fuller M.D.Date of Visit:Jul 11, 2020 Onc Med Follow-up/Prog Note History of Present Illness: Mrs. Celsa Snowden, is a 70-year-old woman with history of hepatosplenomegaly since May 2018, as per patient in April 2018 she went to see her primary care physician for abdominal pain and had abdominal sonogram done which showed hepatosplenomegaly subsequently on 05/31/[address] scan of abdomen pelvis which shows persistent hepatomegaly and splenomegaly. Improved enlargement upper abdominal and wan hepatis lymph nodes. Stable cholelithiasis. Moderate esophageal hiatal hernia. At that time she was referred to Dr. Sanchez assistant corporate secretary in [facility], he diagnosed her with nonalcoholic fatty liver and she was advised to lose weight, patient lost about 28 pounds since last year and half follow-up CT scan of abdomen pelvis done on 05/30/2019 showed increasing hepatosplenomegaly, wedge-shaped hypodensity in the enlarged spleen concerning for new splenic infarct. And increasing intra-abdominal adenopathy, lymph node along the gastrohepatic ligament now measuring 1.2 cm compared to 6 mm last year and lymph node just medial to spleen is 1.4 cm compared to 2.8 cm previously.. And liver now measures 25.3 cm compared to 20 cm last year and spleen is 22.5 cm compared to 18 cm last year. And mild pneumonitis. Patient said she was told about anemia last week but denies any palpitation or shortness of breath denies any melena or hematochezia denies any hemoptysis or hematemesis, denies any jaundice. Denies any night sweats or peripheral lymphadenopathy, but intentional weight loss. Patient denies any history of hepatitis in the past patient denies any history of EGD or colonoscopy in the past patient denies any history of anemia in the past denies any history of iron supplement in the past. Patient denies any abdominal pain. developed progressive left abdominal pain and for which she was referred to Dr. Atkins alliance manager at [facility] in [place] as her assistant corporate secretary Dr. Sanchez was not available. And Dr. Atkins referred her to Dr. 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, flow cytometry showed kappa restricted, CD20 positive, CD5 negative, CD10 negative B-cell population consistent with splenic marginal zone lymphoma CT PET scan done on 09/10/2019 showed, negative for active lymphoma, status post splenectomy, Labs checked on 09/16/2019, showed IgG 604, IgM 215, IgA 57, ferritin 36 iron 381 TIBC 5:30 B12 575 iron saturation 71.8 Came for follow-up, denies any specific complaints, no fever chills, no nausea or vomiting, no diarrhea or constipation, no night sweats, no recurrent fever, no weight loss, no peripheral lymphadenopathy, no abdominal fullness Medications: ALPRAZolam 1 Tablet (of 0.5 mg) Oral PRN, Ambien 1 Tablet (of 10 mg) Oral daily, Aspirin Adult 1 Tablet (of 325 mg) Oral daily, hydroCHLOROthiazide 1 Tablet (of 25 mg) Oral daily, Pantoprazole Sodium 1 Tablet (of 40 mg) Tablet, enteric coated Oral daily Allergies: No Known Allergies. Review of Systems: Review of Systems is not available for this patient. Vital Signs: Performed on Jul 11, 2020 09:04 Height - 64.00 in Weight - 177.8 lbs (HIGH) BSA - 1.86 sq.m BMI - 30.52 (HIGH) Temperature - 96.2 F (LOW) Pulse - 80 /min Respiration - 18 /min BP - 184/72 mm(hg) (HIGH) O2 Sat - 95 % (LOW) Pain - 0 Fatigue - 2 Performance Status: 0 - Fully active, able to carry on all predisease activities without restrictions. (ECOG) Physical Examination: ENMT - No mouth sores, no thrush, no jaundice, no cervical lymphadenopathy, Respiratory - Lungs are clear to auscultation, Cardiovascular - Regular rate and rhythm of heart, Abdomen - Soft, bowel sounds present, Extremities - No visible edema. Lab/Imaging: Most recent lab results are not available for this patient. Impression: 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 on 08/05/2019 final pathology report showed small to intermediate size lymphocytes with condensed chromatin and inconspicuous nucleoli and flow cytometry demonstrate a kappa restricted, CD20 positive, CD5 negative, CD10 negative B-cell population consistent with splenic marginal zone lymphoma Hepatomegaly due to nonalcoholic fatty liver CT PET scan done on 09/10/2019 showed no evidence of active lymphoma, status post splenectomy Iron deficiency anemia, on oral iron, discontinued on 09/16/2019 with normalization of hemoglobin Mild leukopenia/thrombocytopenia probably was due to splenic sequestration now resolved after splenectomy done on 08/05/2019 as her CBC done on 08/07/2019 showed white blood count 14.1 hemoglobin 7.5 hematocrit 26.7 platelets 319,000 MCV 79.8 Plan: With patient regarding her labs white blood count 11.3, hemoglobin 13.1 g compared to 12.5 g on December 15, 2019 hematocrit 41.9 platelets 548,000 CMP and LDH within normal limit except sodium 133 Clinically, patient doing well with no new signs symptom including B symptoms suggestive of recurrence of disease on exam there is no peripheral lymphadenopathy or abdominal fullness, her lab work-up is within normal range except expected mild leukocytosis/thrombocytosis due to splenectomy, LDH is within normal range Mild hyponatremia probably due to excessive free water intake, patient was advised to reduce free water intake and will monitor she will return to clinic in 6 months with CBC CMP and LDH Signed By: Macy Fuller M.D. <<Signature on File>>
== END 2020-07-11 05:31 | disposition home or self-care (01) ==
LOC: ONCMED 05:33
PROVIDERS: PCP Family Medicine; Visit Provider Internal Medicine Hematology & Oncology
DX: C83.07 Small cell B-cell lymphoma, spleen (principal); D72.829 Elevated white blood cell count, unspecified; D47.3 Essential (hemorrhagic) thrombocythemia; E87.1 Hypo-osmolality and hyponatremia; K76.0 Fatty (change of) liver, not elsewhere classified; Z90.81 Acquired absence of spleen
CPT/HCPCS: 99214

== ENCOUNTER 2021-07-05 20:33 | Emergency (ER) | payer MEDICARE, OTHER, SELFPAY ==
[2021-07-05 20:48] VITALS: BP 175/87; PULSE 105; RESP 18; TEMP 36.8; O2SAT 94; BMI 26.6
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
[2021-07-05] MEDS: ipratropium-albuterol 3 mL Neb 6 ML INHALATION (22:12)
[2021-07-05 22:13] VITALS: PULSE 99; RESP 16; O2SAT 91
[2021-07-05 22:17] VITALS: PULSE 99
== END 2021-07-05 22:58 | disposition home or self-care (01) ==
PROVIDERS: Emergency Provider Physician Assistant; PCP Family Medicine
DX: Z04.1 Encounter for examination and observation following transport accident (principal); Z79.82 Long term (current) use of aspirin; I10 Essential (primary) hypertension; F17.210 Nicotine dependence, cigarettes, uncomplicated; V40.6XXA Car passenger injured in collision with pedestrian or animal in traffic accident, initial encounter
CPT/HCPCS: 71045; 94640; 96372; 99283; J2930

== ENCOUNTER 2022-03-02 02:58 | Inpatient (IN) | payer MEDICARE, OTHER, SELFPAY ==
[2022-03-02] VITALS (17 sets, daily range): BP systolic 130–167; BP diastolic 59–87; PULSE 92–121; RESP 16–25; TEMP 36.6–36.7; O2SAT 93–97; BMI 27.4; BMI 27.8
--- NOTE | 2022-03-02 03:04 | ECG_ITS ---
[facility] Test Date: 2022-03-02 Pat Name: Celsa Snowden Department: Room: Gender: Female Day Treatment Clinician/Art Therapist: : 1950 Requested By: Moreno Herbert Order Number: [id number] Audie MD: Shawn Ceballos M.D. Measurements Intervals [place] Rate: 123 P: 68 GA: 145 QRS: -5 QRSD: 110 T: 79 QT: 315 QTc: 451 Interpretive Statements SINUS TACHYCARDIA MODERATE INTRAVENTRICULAR CONDUCTION DELAY [105+ ms QRS DURATION, 80+ ms Q/S IN V1/V2, NO Q AND 60+ ms R IN I/aVL/V5/V6] MODERATE ST DEPRESSION [0.05+ mV ST DEPRESSION] No previous ECG available for comparison Electronically Signed On 03-02-2022 10:17:27 CDT by Shawn Ceballos M.D. [id number]
--- NOTE | 2022-03-02 03:07 | XRR_ITS ---
PROCEDURE INFORMATION: Exam: XR Chest Exam date and time: 03/02/2022 3:14 AM Age: 72 years old Clinical indication: Pain; Chest pressure; Additional info: Chest pain TECHNIQUE: Imaging protocol: Radiologic exam of the chest. Views: 1 view. COMPARISON: CR (CHEST, ) 07/05/2021 9:18 PM FINDINGS: Lungs: Hyperinflation of the lungs with changes of COPD. Patchy right basilar atelectasis or other infiltrates. There is biapical pleural thickening. There is slight prominence of the perihilar markings. Pleural spaces: There is blunting of the costophrenic angles. No pneumothorax. Heart/Mediastinum: No cardiomegaly. Bones/joints: No acute fracture. XR/XR chest 1V portable [id number] IMPRESSION: Patchy right basilar atelectasis or other infiltrates. Small pleural effusions. Question mild pulmonary vascular congestion.
[2022-03-02 03:22] LABS: Basophils # 0.2 10^3/uL (0.0-0.1); Basophils % 1.3 %; Eosinophils # 0.4 10^3/uL (0.0-0.8); Eosinophils % 2.1 %; Hematocrit 38.9 % (37.0-47.0); Hemoglobin 12.9 g/dL (11.5-15.3); Lymphocytes # 7.9 10^3/uL (0.8-4.8); Lymphocytes % 41.5 %; Mean Corpuscular HGB Conc 33.2 g/dL (30.0-36.0); Mean Corpuscular Hemoglobin 25.7 pg (28.0-34.0); Mean Corpuscular Volume 77.5 fl (81-99); Mean Platelet Volume 11.1 fL (7.4-10.4); Monocytes # 2.8 10^3/uL (0.2-0.9); Monocytes % 14.8 %; Neutrophils # 6.62 10^3/uL (1.8-7.7); Neutrophils % 34.5 %; Nucleated Red Blood Cells # 0.1 /100WBC; Nucleated Red Blood Cells % 0.6 %; Platelet Count 165 10^3/cmm (130-400); Red Blood Count 5.02 10^6/uL (4.1-5.3); Red Cell Distribution Width 17.1 % (12.1-15.1)
[2022-03-02 03:32] LABS: INR 0.99 (0.8-1.2)
[2022-03-02 03:33] LABS: Partial Thromboplastin Time 22.6 SECONDS (23.9-36.7)
--- NOTE | 2022-03-02 03:41 | CTR_ITS ---
PROCEDURE INFORMATION: Exam: CTA Chest With Contrast Exam date and time: 03/02/2022 4:19 AM Age: 72 years old Clinical indication: Abdominal pain; Generalized; Chest pressure; Prior surgery; Surgery date: 6+ months; Surgery type: Splenectomy, lap earle; Additional info: Cp, epigastric pain, SOB tachycardia TECHNIQUE: Imaging protocol: Computed tomographic angiography of the chest with contrast. 3D rendering (Not supervised by radiologist): MIP and/or 3D reconstructed images were created by the technologist. Radiation optimization: All CT scans at this facility use at least one of these dose optimization techniques: automated exposure control; mA and/or kV adjustment per patient size (includes targeted exams where dose is matched to clinical indication); or iterative reconstruction. Contrast material: OMNI 350; Contrast volume: 100 ml; Contrast route: INTRAVENOUS (IV); COMPARISON: CR (CHEST, ) 03/02/2022 3:14 AM RADIATION DOSE METRICS: Total DLP (mGy-cm): 857.06 FINDINGS: Pulmonary arteries: Normal. No pulmonary emboli. Aorta: Unremarkable. No aortic aneurysm. No aortic dissection. Lungs: Unremarkable. No consolidation. No masses. Pleural spaces: Unremarkable. No pneumothorax. No pleural effusion. Heart: Unremarkable. No cardiomegaly. No pericardial effusion. Lymph nodes: Unremarkable. No enlarged lymph nodes. Bones/joints: Unremarkable. No acute fracture. Soft tissues: Unremarkable. PROCEDURE INFORMATION: Exam: CT Abdomen And Pelvis With Contrast Exam date and time: 03/02/2022 4:19 AM Age: 72 years old Clinical indication: Abdominal pain; Generalized; Chest pressure; Prior surgery; Surgery date: 6+ months; Surgery type: Splenectomy, lap earle; Additional info: Cp, epigastric pain, SOB tachycardia TECHNIQUE: Imaging protocol: Computed tomography of the abdomen and pelvis with contrast. Radiation optimization: All CT scans at this facility use at least one of these dose optimization techniques: automated exposure control; mA and/or kV adjustment per patient size (includes targeted exams where dose is matched to clinical indication); or iterative reconstruction. Contrast material: OMNI 350; Contrast volume: 100 ml; Contrast route: INTRAVENOUS (IV); COMPARISON: CT abdomen w con* [id number] 05/30/2019 5:22 PM RADIATION DOSE METRICS: Total DLP (mGy-cm): 857.06 FINDINGS: Diaphragm: Small hiatal hernia. Liver: Unremarkable. Gallbladder and bile ducts: Status post cholecystectomy. Pancreas: Question mild peripancreatic haziness which may be seen with pancreatitis. Differential includes volume averaging artifact. Spleen: Status post splenectomy. Adrenal glands: Normal. No mass. Kidneys and ureters: No hydronephrosis. Stomach and bowel: Colonic diverticulosis without findings of diverticulitis. Appendix: No evidence of appendicitis. Intraperitoneal space: No free air. No significant fluid collection. Vasculature: Atherosclerotic changes of the aorta. Lymph nodes: Nonspecific shotty retroperitoneal lymph nodes. Urinary bladder: Unremarkable as visualized. Reproductive: Unremarkable as visualized. Bones/joints: Degenerative changes the lumbar spine most prominent L4-L5 and L5-S1. No acute fracture. Soft tissues: Unremarkable. CT/CT angio chest w abd pel w con IMPRESSION: No acute findings. IMPRESSION: Question mild peripancreatic haziness which may be seen with pancreatitis. Differential includes volume averaging artifact. Correlate with pancreatic enzymes.
--- NOTE | 2022-03-02 03:41 | ED_ITS ---
HPI - Chest Pain General: Chief Complaint: Chest Pain Stated Complaint: CP Time Seen by Provider: 03/02/22 03:06 Source: patient and family History of Present Illness: 72-year-old female with no prior history of coronary disease. She is a former smoker. She presents with chest discomfort of the central chest, that radiated toward her left clavicle at home. This happened at rest. She was not asleep. She has not had pain like this before. She was short of breath with the pain. Pain improved after administration of 3 nitroglycerin in the ambulance, down to a 2/10. Family notes that she has not felt well the past couple of days. She has been tired. She denies fever. She has a chronic cough. No leg edema. No long car trips. MD complaint: chest pain Pertinent past history: other Onset (ago): hour(s) Timing of current episode: constant Prior episodes: No Onset: during rest Pain location: substernal Pain radiation: left shoulder Severity: severe Quality: aching and heaviness Relieving factors: nitroglycerin Exacerbating factors: nothing Associated symptoms: Reports abdominal pain (Epigastric), dyspnea and nausea; Deny diaphoresis, fever(s), leg edema, palpitations or vomiting Treatment prior to arrival: aspirin (She takes daily) and nitroglycerin Review of Systems Const: Denies: fever(s) or diaphoresis Eyes: Denies: change in vision ENMT: Denies: throat pain Card: Reports: chest pain; Denies: palpitations Resp: Reports: dyspnea GI: Reports: abdominal pain (Epigastric) and nausea; Denies: vomiting Neuro: Denies: headache(s) PFS ED PFSH: Medical History Essential (primary) hypertension Splenic infarct Family History Mother Stroke Sister Cancer Social History Smoking and tobacco status: current every day smoker Alcohol intake: former Marital status: Number of children: 2 Number of grandchildren: 3 service: No History of recent travel: No Current gender identity: Female Physical Exam Const: GENERAL APPEARANCE: cooperative and ill appearing (Mildly); not frail appearing HENMT: COMMON NORMALS: normocephalic, atraumatic and Normal external nose present HEAD & SCALP: normocephalic and atraumatic FACE & SINUS: normal facial exam and face symmetric NOSE: Normal external nose present MOUTH: lip normal Eye: COMMON NORMALS: Equal, round and reactive pupils present and EOMs intact bilaterally PUPIL: Yes Equal, round and reactive pupils present Neck/C-Spine: GENERAL: Yes trachea midline Chest: CHEST: Yes Symmetrical chest wall rise Resp: COMMON NORMALS: normal respiratory effort, No use of accessory muscles and clear to auscultation bilaterally AUSCULTATION: clear to auscultation bilaterally Cardio: COMMON NORMALS: regular rhythm and Peripheral pulses 2+ throughout RATE: tachycardic RHYTHM: regular rhythm PERIPHERAL PULSES: Peripheral pulses 2+ throughout GI: COMMON NORMALS: Normal to inspection, nondistended, normoactive bowel sounds present and Soft to palpation PALPATION: Yes Soft to palpation and Yes Tenderness to palpation present (GI) (Epigastric) Extremity: COMMON NORMALS: no pedal edema Neuro: EFRAIN COMA SCALE: document GCS findings [place] coma scale eye opening: Spontaneous [place] coma scale verbal response: Orientated [place] coma scale motor response: Obey commands [place] coma scale total score: 15 SPEECH: speech normal Psych: COMMON NORMALS: mental status grossly normal and cooperative Skin: COMMON NORMALS: no wounds Course Vital Signs: Vital signs: Vital Signs Temperature 97.8 F 03/02/22 03:00 Pulse Rate 104 H 03/02/22 05:49 Respiratory Rate 16 03/02/22 05:49 Blood Pressure 142/66 03/02/22 05:49 Pulse Oximetry 95 03/02/22 05:49 Oxygen Delivery Me thod 03/02/22 05:49 Oxygen Flow Rate 2 03/02/22 05:49 MDM - Chest Pain Medical Decision Making EKG reveals sinus tachycardia with a normal axis. Slight interventricular conduction delay. ST depression is present laterally in precordial leads. At 2 hours, lateral ST depression has improved. She remained tachycardic, and somewhat hypertensive, and was given 2.5 mg of IV metoprolol with resolution of tachycardia. She is oxygen dependent on 2 L. Saturations are 95% now. Her white blood cell count is 19. Potassium is 3.3. This is repleted. Chest x-ray showed right-sided basilar infiltrate with small pleural effusions. COVID antigen is negative. Her troponin did not elevated 2 hours and remained at 9. However, her lactic is 5.6. This lady has an elevated lactic acid, significant leukocytosis, and tachycardia initially. She has infiltrates on CTA. She is asplenic. She is given Rocephin after blood cultures here. She will be admitted for community-acquired pneumonia. We will obtain a respiratory viral panel on the patient. As the patient is hypertensive, sepsis bolus was not given. Lab Data : 03/02/22 03:12 03/02/22 03:12 Radiology Impressions Chest X-Ray 03/02/22 03:07 IMPRESSION: Patchy right basilar atelectasis or other infiltrates. Small pleural effusions. Question mild pulmonary vascular congestion. Chest/Abdomen/Pelvis CT 03/02/22 03:41 IMPRESSION: No acute findings. IMPRESSION: Question mild peripancreatic haziness which may be seen with pancreatitis. Differential includes volume averaging artifact. Correlate with pancreatic enzymes. ADDENDUM: 03/02/22 0517 Impression 3: There are slightly prominent mediastinal lymph nodes, please correlate with prior history. Findings may be reactive or malignant in etiology. Laboratory Results WBC 19.1 10^3/uL (4.0-10.0) H 03/02/22 03:12 RBC 5.02 10^6/uL (4.1-5.3) 03/02/22 03:12 Hgb 12.9 g/dL (11.5-15.3) 03/02/22 03:12 Hct 38.9 % (37.0-47.0) 03/02/22 03:12 MCV 77.5 fl (81-99) L 03/02/22 03:12 MCH 25.7 pg (28.0-34.0) L 03/02/22 03:12 MCHC 33.2 g/dL (30.0-36.0) 03/02/22 03:12 RDW 17.1 % (12.1-15.1) H 03/02/22 03:12 Plt Count 165 10^3/cmm (130-400) 03/02/22 03:12 MPV 11.1 fL (7.4-10.4) H 03/02/22 03:12 Neut % (Auto) 34.5 % 03/02/22 03:12 Lymph % (Auto) 41.5 % 03/02/22 03:12 [place] % (Auto) 14.8 % 03/02/22 03:12 Eos % (Auto) 2.1 % 03/02/22 03:12 Baso % (Auto) 1.3 % 03/02/22 03:12 Neut # (Auto) 6.62 10^3/uL (1.8-7.7) 03/02/22 03:12 Lymph # (Auto) 7.9 10^3/uL (0.8-4.8) H 03/02/22 03:12 [place] # (Auto) 2.8 10^3/uL (0.2-0.9) H 03/02/22 03:12 Eos # (Auto) 0.4 10^3/uL (0.0-0.8) 03/02/22 03:12 Baso # (Auto) 0.2 10^3/uL (0.0-0.1) H 03/02/22 03:12 Nucleated RBC % (auto) 0.6 % 03/02/22 03:12 Nucleated RBCs # 0.1 /100WBC 03/02/22 03:12 PT 13.40 SECONDS (12.1-14.9) 03/02/22 03:12 INR 0.99 (0.8-1.2) 03/02/22 03:12 APTT 22.6 SECONDS (23.9-36.7) L 03/02/22 03:12 Sodium 130 mmol/L (136-145) L 03/02/22 03:12 Potassium 3.3 mmol/L (3.5-5.1) L 03/02/22 03:12 Chloride 88 mmol/L (98-107) L 03/02/22 03:12 Carbon Dioxide 24 mmol/L (22-29) 03/02/22 03:12 Anion Gap 21.3 (5-19) H 03/02/22 03:12 BUN 25 mg/dL (8-23) H 03/02/22 03:12 Creatinine 0.8 mg/dL (0.5-0.9) 03/02/22 03:12 GFR Calculation 70.9 mL/min (90-130) L 03/02/22 03:12 Glucose 116 mg/dL (65-115) H 03/02/22 03:12 Calculated Osmolality 275 mOsm/kg (285-295) L 03/02/22 03:12 Lactate 5.6 mmol/L (0.5-2.2) H* 03/02/22 05:15 Calcium 11.3 mg/dL (8.5-10.5) H 03/02/22 03:12 Total Bilirubin 0.5 mg/dL (0.15-1.2) 03/02/22 03:12 AST 22 U/L (0-32) 03/02/22 03:12 ALT 20 U/L (0-33) 03/02/22 03:12 Alkaline Phosphatase 94 U/L (35-105) 03/02/22 03:12 Troponin T Baseline 9 ng/L (0-10) 03/02/22 03:12 Troponin T 120 Minute 9.28 ng/L (0-10) 03/02/22 05:05 Delta Troponin T 0.28 ABS# (0-10) 03/02/22 05:05 NT-Pro-B Natriuret Pep 337 pg/mL (0-125) H 03/02/22 03:12 Total Protein 6.4 g/dL (6.6-8.7) L 03/02/22 03:12 Albumin 4.0 g/dL (3.5-5.2) 03/02/22 03:12 Globulin 2.4 g/dL (1.3-4.6) 03/02/22 03:12 Lipase 32 U/L (13-60) 03/02/22 05:05 SARS-CoV-2 Ag (Rapid) negative (Negative) 03/02/22 05:48 Discharge Plan Discharge Patient Disposition: Admitted As Inpatient Clinical Impression: Chest pain, Community acquired pneumonia, Sepsis, Acute respiratory failure with hypoxia, Asplenia Condition: Stable Coding Level of Care Code ED City Maintenance Manager for David Fwd Exam Comprehensive
[2022-03-02 03:42] LABS: Troponin(5th) Baseline 9 ng/L (0-10)
[2022-03-02 03:48] LABS: Alanine Aminotransferase 20 U/L (0-33); Alkaline Phosphatase 94 U/L (35-105); Anion Gap 21.3 (5-19); Aspartate Amino Transferase 22 U/L (0-32); Blood Urea Nitrogen 25 mg/dL (8-23); Calcium 11.3 mg/dL (8.5-10.5); Carbon Dioxide 24 mmol/L (22-29); Chloride 88 mmol/L (98-107); Creatinine Clr Calc Pharmacy 66.2528; Globulin 2.4 g/dL (1.3-4.6); Glomerular Filtration Rate 70.9 mL/min (90-130); Glucose 116 mg/dL (65-115); NT Pro B Type Natriuretic Pept 337 pg/mL (0-125); Osmolality Calculated 275 mOsm/kg (285-295); Potassium 3.3 mmol/L (3.5-5.1); Sodium 130 mmol/L (136-145); Total Bilirubin 0.5 mg/dL (0.15-1.2); Total Protein 6.4 g/dL (6.6-8.7)
[2022-03-02 04:11] LABS: White Blood Count 19.1 10^3/uL (4.0-10.0)
[2022-03-02 04:12] LABS: Slide Review Slide Review Perform
[2022-03-02] MEDS: lidocaine 2% viscous 15 ML, aluminum-mag hydrox-simethicon 30 ML, sucralfate oral liq 1 GM PO (04:12)
[2022-03-02] MEDS: iohexol 350 mg/mL 100 mL Btl IV (04:24)
--- NOTE | 2022-03-02 05:06 | ECG_ITS ---
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 Measurements Intervals [place] Rate: 98 P: 68 PA: 150 QRS: -14 QRSD: 116 T: 64 QT: 343 QTc: 438 Interpretive Statements SINUS RHYTHM MODERATE INTRAVENTRICULAR CONDUCTION DELAY [105+ ms QRS DURATION, 80+ ms Q/S IN V1/V2, NO Q AND 60+ ms R IN I/aVL/V5/V6] Compared to ECG 03/02/2022 03:04:45 Sinus tachycardia no longer present ST (T wave) deviation no longer present Electronically Signed On 03-02-2022 10:19:01 CDT by Shawn Ceballos M.D. [id number]
[2022-03-02] MEDS: potassium chloride ER 20 mEq Tablet 40 MEQ PO (05:48)
[2022-03-02] MEDS: metoprolol tartrate 1 mg/1 mL SDV 5 mL 2.5 MG IVP (05:50)
[2022-03-02] MEDS: cefTRIAXone 1,000 MG in sodium chloride 0.9% (plus) 50 ML 100 MG IV (05:54)
[2022-03-02 05:56] LABS: Lactate (Lactic Acid level) 5.6 mmol/L (0.5-2.2)
[2022-03-02 05:57] LABS: Troponin 5 2HR 9.28 ng/L (0-10)
[2022-03-02 05:58] LABS: Lipase 32 U/L (13-60)
[2022-03-02 05:59] LABS: Troponin 5 2HR Delta 0.28 ABS# (0-10)
[2022-03-02 06:13] LABS: SARS Covid-2 Antigen negative (Negative)
--- NOTE | 2022-03-02 07:22 | P.HP_ITS ---
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 She has been also having chest pain, central, radiating to left neck and left shoulder. Reports that moving around, moving her arm was making the pain worse. She denies any headache, nausea vomiting or diarrhea. In ER she is noted with sinus tachycard ia 104 bpm, WBC 19.1, initially very dyspneic, tachypneic 25 breaths/min, started on 2 L nasal cannula oxygen. Sodium 130, potassium 3.3, anion gap 21.3, lactic acid 5.6. BUN 25, creatinine 0.8. Glucose 116. NT proBNP 337. COVID- 19 PCR pending, antigen was negative. EKG with sinus rhythm, moderate intraventricular conduction delay. On initial EKG some moderate ST depression in inferolateral leads. Troponin baseline 9, 2-hour troponin 9.28. CT chest abdomen pelvis without PE, question of mild peripancreatic haziness, possibly pancreatitis related on imaging, differential includes volume averaging artifact, correlate with pancreatic enzymes. She had also reported epigastric discomfort. Lipase was only 32. She had taken NSAIDs last several days. Review of Systems Const: Denies: fever(s), chills, body aches or malaise Eyes: Denies: change in vision, eye discomfort or eye redness ENMT: Denies: throat pain, oral sores or ear or mastoid pain Card: Reports: chest pain; Denies: edema, pre-syncope or dyspnea on exertion Resp: Reports: dyspnea and productive cough; Denies: change in phlegm color or hemoptysis GI: Reports: abdominal pain (Epigastric); Denies: nausea, vomiting, diarrhea, constipation, hematochezia or melena : Denies: flank pain, urinary frequency or hematuria Musc: Denies: back pain, joint swelling or joint redness Skin/Breast: Denies: rash or new lesions Neuro: Denies: headache(s), numbness in extremities, weakness in extremities, dizziness, confusion or seizure-like activity Endo: Denies: polyuria or polydipsia Magdaleno/Lymph: Denies: easy bleeding or tender lymph nodes All/Imm: Denies: urticaria or tongue swelling Medications/Allergies Home Medications Medication Instructions Recorded Confirmed Last Taken Type aspirin 325 mg tablet 325 mg PO DAILY 07/05/19 07/18/19 07/15/19 History hydrochlorothiazide 25 mg tablet 25 mg PO DAILY 07/05/19 07/18/19 07/18/19 History alprazolam 1 mg tablet 0.5 mg PO DAILY 07/14/19 07/15/19 07/17/19 History pantoprazole 40 mg tablet,delayed 40 mg PO DAILY #30 tabs 12/31/21 Unknown Rx release Allergies Allergy/AdvReac Type Severity Reaction Status Date / Time No Known Allergies Allergy Verified 07/14/19 14:18 PFSH Acute PFSH: Medical History (Updated 03/02/22 @ 07:59 by Sb Villar MD) Essential (primary) hypertension Hepatomegaly Hiatal hernia Splenic infarct Surgical History H/O splenectomy H/O tubal ligation History of cholecystectomy Previous back surgery Family History Mother Stroke Sister Cancer Father Cancer CAD (coronary artery disease) Social History Smoking and tobacco status: current every day smoker Alcohol intake: former Marital status: Number of children: 2 Number of grandchildren: 3 service: No History of recent travel: No Current gender identity: Female Vitals/I&O/Wt Last Vital Signs Temp 97.8 F 03/02/22 03:00 Pulse 104 H 03/02/22 05:49 Resp 16 03/02/22 05:49 BP 142/66 03/02/22 05:49 Pulse Ox 95 03/02/22 05:49 O2 Del Method 03/02/22 05:49 O2 Flow Rate 2 03/02/22 05:49 03/01/22 03/02/22 03/02/22 22:59 06:59 14:59 Intake Total 50 / 50 Balance 50 / 50 Weight last 48 hrs Weight 74.843 kg Physical Exam Narrative: Accompanied by her granddaughter. Const: COMMON NORMALS: patient oriented x3 and alert GENERAL APPEARANCE: cooperative ORIENTATION/CONSCIOUSNESS: Yes awake HENMT: COMMON NORMALS: oropharynx normal Neck/C-Spine: COMMON NORMALS: no JVD Resp: COMMON NORMALS: normal respiratory effort AUSCULTATION: crackles Laterality: right (More in right base) and left (Last in left base) Cardio: COMMON NORMALS: no JVD, regular rhythm, S1 normal heart sound present, S2 normal heart sound present and No murmurs present (Cardio) RATE: ta chycardic RHYTHM: regular rhythm HEART SOUNDS: S1 normal heart sound present and S2 normal heart sound present GI: COMMON NORMALS: Normal to inspection, nondistended, normoactive bowel sounds present, Soft to palpation and non-tender PALPATION: Yes Soft to palpation Extremity: COMMON NORMALS: no joint enlargement and no pedal edema Neuro: COMMON NORMALS: patient oriented x3 and moves all extremities SENSORIUM/ORIENTATION: Yes alert Skin: COMMON NORMALS: no rashes or lesions noted GENERAL SKIN EXAM: no rashes or lesions noted Sepsis: Is patient septic: Yes Focused sepsis exam performed: Yes Data : 03/02/22 03:12 03/02/22 03:12 Micro: Microbiology 03/02/22 05:15 Blood Culture - Preliminary Blood SPECIMEN COLLECTED 03/02/22 05:15 Blood Culture - Preliminary Blood SPECIMEN COLLECTED A&P Assessment and plan (1) Sepsis: Severe sepsis, sinus tachycardia 104, leukocytosis 19.1, lactic acidosis 5.6. Pulmonary source with pneumonia. History of asplenia. Broaden antibiotics to Zosyn, continue azithromycin. Fo llow-up blood culture. Sputum culture. Urine bacterial antigens. Follow-up COVID-19 PCR. Support oxygenation. Wean off oxygen as tolerating. As she is in severe sepsis with significant lactic acidosis we will give 30 mill per KG bolus. Follow-up lactic acid. (2) Community acquired pneumonia: As above. (3) Chest pain: Complete troponin EKG series. Troponins so far negative. Pain does sound more musculoskeletal as she states it is worse with movement. No PE on CTA. No obvious source of chest pain, although does have epigastric pain as well, question possible pancreatitis with mild haziness on CT, however, lipase normal. May have gastritis, does state that she has been taking NSAIDs last several days. Will give PPI twice daily. (4) Lactic acidosis: As above. (5) Pancreatic abnormality: Noted mild haziness on CT. Does have epigastric tenderness. However, lipase is only 32. Less likely pancreatitis, would suspect more something like gastritis given she has been taking NSAIDs in the last several days. With PPI twice daily. We will follow-up lipase. She requests to eat. Discussed with her to exercise caution, in case she has any pain with intake to stop immediately and let us know. (6) Hypercalcemia: Calcium 11.3, but does appear hemoconcentrated, possibly dehydrated. May be secondary to thiazide as well. Receiving IV fluid bolus/challenge as above. Discontinue thiazide. Reassess calcium. Plan Mild hyponatremia: Possibly secondary to HCTZ, mild hypovolemia. Hold HCTZ. Mild hypokalemia: Received potassium. Follow-up potassium level. Hiatal hernia HTN Smoking addiction Attestations Medical Necessity Statement*: Admission of over 2 midnights anticipated versus management of severe sepsis, and lady status post splenectomy. Coding Level of Care Code Acute Sports Broadcasting Internship for g Fwd Exam Comprehensive Diagnoses Sepsis A41.9 Community acquired pneumonia J18.9 Chest pain R07.9 Lactic acidosis E87.20 Pancreatic abnormality Q45.3 Hypercalcemia E83.52
[2022-03-02 08:29] LABS: Adenovirus Not Detected (NOT DETECT); Chlamydia Pneumoniae Not Detected (NOT DETECT); Coronavirus 229E,HKU1,NL63,OC4 Not Detected (NOT DETECT); Human Metapneumovirus Not Detected (NOT DETECT); Human Rhinovirus/Enterovirus Not Detected (NOT DETECT); Influenza A Not Detected (NOT DETECT); Influenza A H1 Not Detected (NOT DETECT); Influenza A H1-2009 Not Detected (NOT DETECT); Influenza A H3 Not Detected (NOT DETECT); Influenza B Not Detected (NOT DETECT); Mycoplasma Pneumoniae Not Detected (NOT DETECT); Parainfluenza Virus Type 1 Not Detected (NOT DETECT); Parainfluenza Virus Type 2 Not Detected (NOT DETECT); Parainfluenza Virus Type 3 Not Detected (NOT DETECT); Parainfluenza Virus Type 4 Not Detected (NOT DETECT); Respiratory Syncytial Virus A Not Detected (NOT DETECT); Respiratory Syncytial Virus B Not Detected (NOT DETECT); SARS-COV-2 Not Detected (NOT DETECT)
[2022-03-02] MEDS: azithromycin 500 MG in sodium chloride 0.9% 250 ML 250 MG IV (08:55)
[2022-03-02] MEDS: fentaNYL 50 mcg/mL INJ 2mL 25 MCG IVP (09:41)
--- NOTE | 2022-03-02 09:56 | ECG_ITS ---
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 Measurements Intervals [place] Rate: 98 P: 65 WA: 154 QRS: 1 QRSD: 109 T: 46 QT: 336 QTc: 429 Interpretive Statements SINUS RHYTHM MODERATE INTRAVENTRICULAR CONDUCTION DELAY [105+ ms QRS DURATION, 80+ ms Q/S IN V1/V2, NO Q AND 60+ ms R IN I/aVL/V5/V6] Compared to ECG 03/02/2022 05:06:11 No significant changes Electronically Signed On 03-02-2022 10:19:15 CDT by Shawn Ceballos M.D. [email or web address]
[2022-03-02 10:16] LABS: Troponin 5 6HR 9.08 ng/L (0-10)
[2022-03-02 10:23] LABS: Troponin 5 6HR Delta 0.08 ng/L (0-12)
[2022-03-02] MEDS: piperacillin-tazobactam 3.375 GM in sodium chloride 0.9% (plus) 50 ML IV ×2 (13:15→20:39)
[2022-03-02] MEDS: sodium chloride 0.9% 1,000 ML 50 ML IV (13:41)
[2022-03-02] MEDS: pantoprazole DR 40 mg Tablet PO ×2 (13:42→22:56)
[2022-03-02] MEDS: heparin 5,000 unit/mL INJ 1 mL 5000 UNIT SUBCUT ×2 (13:44→22:56)
--- NOTE | 2022-03-02 16:23 | PM.MISC ---
Miscellaneous Note Note: Generally feeling better Currently on 2 L nasal cannula Patient has recently quit smoking CT scan findings noted No active nausea, vomiting abdominal pain Awake and alert Dehydrated S1, S2 tachycardia Hemodynamically stable Granddaughter at the bedside Assessment plan Patient is asplenic, for community-acquired pneumonia I will add broad-spectrum coverage with vancomycin and Zosyn, add double antipseudomonal coverage with levofloxacin Repeat lactic acid She has received septic bolus Sepsis related to pneumonia For her lymphadenopathy evident on her CT chest will need outpatient evaluation by district traffic chief No active signs of pancreatitis Hypokalemia: Repleted No active chest pain Troponin trending down Sinus rhythm on EKG with incomplete branch block Full code
[2022-03-02 17:38] LABS: Lactate (Lactic Acid level) 5.7 mmol/L (0.5-2.2)
[2022-03-02] MEDS: vancomycin 1,000 MG in sodium chloride 0.9% 250 ML 250 MG IV (18:10)
[2022-03-02] MEDS: morphine IR 15 mg Tablet PO ×2 (18:30→23:01)
[2022-03-03] VITALS (13 sets, daily range): BP systolic 121–178; BP diastolic 67–84; PULSE 70–92; RESP 14–20; TEMP 36.4–37; O2SAT 91–94
[2022-03-03] MEDS: piperacillin-tazobactam 3.375 GM in sodium chloride 0.9% (plus) 50 ML IV ×3 (04:10→20:37)
[2022-03-03 04:40] LABS: Basophils # 0.2 10^3/uL (0.0-0.1); Basophils % 1.1 %; Eosinophils # 0.5 10^3/uL (0.0-0.8); Eosinophils % 3.5 %; Hematocrit 36.8 % (37.0-47.0); Lymphocytes # 4.7 10^3/uL (0.8-4.8); Lymphocytes % 35.2 %; Mean Corpuscular HGB Conc 32.6 g/dL (30.0-36.0); Mean Corpuscular Hemoglobin 25.6 pg (28.0-34.0); Mean Corpuscular Volume 78.6 fl (81-99); Mean Platelet Volume 11.5 fL (7.4-10.4); Monocytes # 1.6 10^3/uL (0.2-0.9); Monocytes % 11.7 %; Neutrophils # 5.76 10^3/uL (1.8-7.7); Neutrophils % 43.1 %; Nucleated Red Blood Cells # 0.1 /100WBC; Nucleated Red Blood Cells % 0.7 %; Platelet Count 149 10^3/cmm (130-400); Red Blood Count 4.68 10^6/uL (4.1-5.3); Red Cell Distribution Width 17.2 % (12.1-15.1); White Blood Count 13.4 10^3/uL (4.0-10.0)
[2022-03-03 05:07] LABS: Alanine Aminotransferase 18 U/L (0-33); Albumin Level 3.6 g/dL (3.5-5.2); Alkaline Phosphatase 88 U/L (35-105); Anion Gap 19.3 (5-19); Aspartate Amino Transferase 21 U/L (0-32); Blood Urea Nitrogen 19 mg/dL (8-23); Calcium 11.6 mg/dL (8.5-10.5); Carbon Dioxide 24 mmol/L (22-29); Chloride 94 mmol/L (98-107); Globulin 2.2 g/dL (1.3-4.6); Glomerular Filtration Rate 82.7 mL/min (90-130); Glucose 111 mg/dL (65-115); Lipase 34 U/L (13-60); Osmolality Calculated 279 mOsm/kg (285-295); Potassium 4.3 mmol/L (3.5-5.1); Sodium 133 mmol/L (136-145); Total Bilirubin 0.5 mg/dL (0.15-1.2); Total Protein 5.8 g/dL (6.6-8.7)
[2022-03-03 05:08] LABS: Magnesium 1.3 mg/dL (1.7-2.3)
[2022-03-03 05:10] LABS: Lactate (Lactic Acid level) 6.1 mmol/L (0.5-2.2)
--- NOTE | 2022-03-03 05:29 | PC.NURSE ---
Referred pt to physician for review of pt increased lactate levels. Awaiting orders.
[2022-03-03 05:42] LABS: Add RBC Morph Yes
[2022-03-03 05:43] LABS: RBC Morph Comp No
[2022-03-03 05:52] LABS: Anisocytosis 1+; Auer Rods 1+; Poikilocytosis 1+
[2022-03-03] MEDS: morphine IR 15 mg Tablet PO ×4 (06:20→23:26)
[2022-03-03] MEDS: levoFLOXacin 750 mg Tablet PO (08:27)
[2022-03-03] MEDS: sodium chloride 0.9% 1,000 ML 50 ML IV (08:29)
[2022-03-03] MEDS: pantoprazole DR 40 mg Tablet PO ×2 (08:29→18:05)
[2022-03-03] MEDS: ketorolac 30 mg/mL INJ 15 MG IVP (08:47)
[2022-03-03 08:51] LABS: Lactate (Lactic Acid level) 5.6 mmol/L (0.5-2.2)
--- NOTE | 2022-03-03 09:39 | PM.PN ---
Subjective Subjective: Patient clinically is doing well Currently on 2 L I have asked nurse to wean her oxygen off Currently she is eating breakfast Complaining of left-sided shoulder pain just medial to her left scapula No active chest pain or shortness of breath She does experience pleuritic chest pain Vitals/I&O/Wt Last Vital Signs Temp 98.0 F 03/03/22 08:00 Pulse 76 03/03/22 08:00 Resp 14 03/03/22 08:00 BP 122/67 03/03/22 08:00 Pulse Ox 94 03/03/22 08:00 O2 Del Method 03/03/22 08:00 O2 Flow Rate 2 03/03/22 08:00 03/02/22 03/03/22 03/03/22 22:59 06:59 14:59 Intake Total 540 / 1910 400 / 2310 1230 / 1230 Output Total 100 / 300 Balance 540 / 1710 300 / 2010 1230 / 1230 Weight last 48 hrs Weight 77.763 kg Weight 77.791 kg Weight 75.778 kg Weight 74.843 kg Physical Exam Narrative: Patient is sitting at the bedside eating breakfast Currently on 2 L No active stridor or wheezing or crackles Abdomen soft No supraclavicular lymphadenopathy Complaining of pleuritic pain Abdomen soft Euvolemic Pleasant and cooperative Data : 03/03/22 03:40 03/03/22 03:40 Micro: Microbiology 03/02/22 11:52 Legionella Urinary Antigen - Final Urine,Clean Catch 03/02/22 11:52 Bacterial Antigens - Final Urine,Clean Catch 03/02/22 05:15 Blood Culture - Preliminary Blood NEGATIVE TO DATE 03/02/22 05:15 Blood Culture - Preliminary Blood NEGATIVE TO DATE A&P Assessment and plan (1) Hypercalcemia: (2) Pancreatic abnormality: (3) Lactic acidosis: (4) Chest pain: (5) Community acquired pneumonia: (6) Sepsis: (7) Acute respiratory failure with hypoxia: (8) Asplenia: Plan Considering persistent lactic acidosis hypercalcemia, leukocytosis and abnormal mediastinal lymphadenopathy my concern is related to pulmonary malignancy, will touch base with Dr. Soler tomorrow morning if he would recommend bronchoscopy while she is here versus outpatient Clinically patient is doing well Currently on 2 L I have asked nurse to wean off oxygen to room air I have changed her DuoNeb to Xopenex Added thiamine for the persistent leukocytosis I have requested peripheral smear as well Afebrile cultures negative She is asplenic immunocompromise continue broad-spectrum antibiotics Hypomagnesemia: Repleted Full code DVT prophylaxis on board Attestations Medical Necessity Statement*: Continue medical management Time Spent in Patient Care: 30 Coding Level of Care Code Acute Assistant Inventory Manager for Chg Fwd Diagnoses Hypercalcemia E83.52 Pancreatic abnormality Q45.3 Lactic acidosis E87.20 Chest pain R07.9 Community acquired pneumonia J18.9 Sepsis A41.9 Acute respiratory failure with hypoxia J96.01 Asplenia Q89.01
[2022-03-03 10:00] LABS: LAB Peripheral Smear Sent for Review
[2022-03-03] MEDS: ondansetron 2 mg/ML SDV 2 mL 4 MG IVP (10:10)
[2022-03-03] MEDS: heparin 5,000 unit/mL INJ 1 mL 5000 UNIT SUBCUT ×2 (11:49→23:26)
[2022-03-03] MEDS: vancomycin 1,000 MG in sodium chloride 0.9% 250 ML 250 MG IV (18:03)
[2022-03-03] MEDS: levalbuterol 0.63 mg/3 mL Neb INHALATION (20:04)
[2022-03-04] VITALS (14 sets, daily range): BP systolic 124–151; BP diastolic 60–79; PULSE 84–106; RESP 15–20; TEMP 36.6–37.1; O2SAT 82–95
[2022-03-04 04:30] LABS: Basophils # 0.1 10^3/uL (0.0-0.1); Basophils % 1.2 %; Eosinophils # 0.4 10^3/uL (0.0-0.8); Eosinophils % 3.7 %; Hematocrit 34.5 % (37.0-47.0); Hemoglobin 10.8 g/dL (11.5-15.3); Lymphocytes # 4.7 10^3/uL (0.8-4.8); Lymphocytes % 42.1 %; Mean Corpuscular HGB Conc 31.3 g/dL (30.0-36.0); Mean Corpuscular Hemoglobin 25.9 pg (28.0-34.0); Mean Corpuscular Volume 82.7 fl (81-99); Mean Platelet Volume 11.2 fL (7.4-10.4); Monocytes # 1.1 10^3/uL (0.2-0.9); Monocytes % 10.1 %; Neutrophils # 4.19 10^3/uL (1.8-7.7); Neutrophils % 37.4 %; Nucleated Red Blood Cells # 0.1 /100WBC; Platelet Count 143 10^3/cmm (130-400); Red Blood Count 4.17 10^6/uL (4.1-5.3); Red Cell Distribution Width 17.8 % (12.1-15.1); White Blood Count 11.3 10^3/uL (4.0-10.0)
[2022-03-04 04:55] LABS: Alanine Aminotransferase 20 U/L (0-33); Albumin Level 3.2 g/dL (3.5-5.2); Alkaline Phosphatase 80 U/L (35-105); Anion Gap 16.5 (5-19); Aspartate Amino Transferase 20 U/L (0-32); Blood Urea Nitrogen 17 mg/dL (8-23); Calcium 10.6 mg/dL (8.5-10.5); Carbon Dioxide 24 mmol/L (22-29); Chloride 97 mmol/L (98-107); Globulin 1.9 g/dL (1.3-4.6); Glomerular Filtration Rate 98.8 mL/min (90-130); Glucose 77 mg/dL (65-115); Osmolality Calculated 276 mOsm/kg (285-295); Potassium 4.5 mmol/L (3.5-5.1); Sodium 133 mmol/L (136-145); Total Bilirubin 0.4 mg/dL (0.15-1.2); Total Protein 5.1 g/dL (6.6-8.7)
[2022-03-04] MEDS: levoFLOXacin 750 mg Tablet PO (05:07)
[2022-03-04] MEDS: piperacillin-tazobactam 3.375 GM in sodium chloride 0.9% (plus) 50 ML IV ×3 (05:07→20:31)
[2022-03-04] MEDS: morphine IR 15 mg Tablet PO ×2 (05:14→11:50)
[2022-03-04 05:40] LABS: Fibrinogen 216 mg/dL (174-498); Partial Thromboplastin Time 29.6 SECONDS (23.9-36.7)
[2022-03-04 05:44] LABS: D Dimer 1.47 ug/mIFEU (0-0.59)
[2022-03-04] MEDS: ondansetron 2 mg/ML SDV 2 mL 4 MG IVP ×2 (06:08→11:52)
[2022-03-04 06:14] LABS: Lactate (Lactic Acid level) 4.3 mmol/L (0.5-2.2)
[2022-03-04 06:19] LABS: Lactate Dehydrogenase 692 U/L (135-214)
[2022-03-04] MEDS: sodium chloride 0.9% 1,000 ML 100 ML IV ×2 (08:02→18:05)
--- NOTE | 2022-03-04 08:15 | CT_ITS ---
WS: [id number] CTA OF THE CHEST WITH PULMONARY EMBOLISM PROTOCOL TECHNIQUE: High-resolution contrast enhanced CTA of the chest with coronal and sagittal reformatted i brookes with pulmonary embolism protocol. MIP images are also reviewed. CLINICAL INFORMATION: hypoxia COMPARISON: CTA chest March 02, 2022 DLP: 370.[address] scans at [facility] use at least one of these dose optimization techniques: automated e xposure control; mA and/or kV adjustment per patient size (includes targeted exams where dose is matc hed to clinical indication); or iterative reconstruction. FINDINGS: Proximal main pulmonary arteries are normal. Normal segmental and subsegmental pulmonary arteries. No evidence of pulmonary embolus.000Normal caliber thoracic aorta. Aortic calcification. Coronary calci fication. Prominent anterior mediastinal lymph nodes are unchanged. Enlarged anterior prepericardiac lymph node s the largest measuring up to 2 cm unchanged since March 02, 2022. These are nonspecific but suspic ious for recurrence in patient with history of lymphoma. Small bilateral pleural effusions with compressive atelectasis in the lung bases. This is progressed since March 02, 2022. Hazy infiltrates likely due to edema in the dependent posterior segments of b oth upper lobes. Cardiomegaly. Chronic emphysematous changes. No axillary lymphadenopathy. Adrenal glands are normal. Small moderate esophageal hiatal hernia. Chronic anterior wedging in the m id thoracic spine. Chronic compression superior endplate T9 CT/CT angio chest PE protcl [id number] IMPRESSION: 1. No evidence of pulmonary embolus. 2. Small bilateral pleural effusions with compressive atelectasis in the lung bases progressed compared to March 02, 2022. Hazy infiltrates in the dependen t lungs bilaterally likely due to edema. 3. Enlarged anterior prepericardiac lymph nodes the largest measuring up to 2 cm unchanged since March 02, 2022. These are nonspecific but suspicious for r ecurrence in patient with history of lymphoma. This can be further evaluated wh ole-body PET/CT. 4. Slightly enlarged anterior mediastinal and peribronchial lymph nodes unchan ged. No axillary lymphadenopathy. 5. Moderate esophageal hiatal hernia.
[2022-03-04] MEDS: levalbuterol 0.63 mg/3 mL Neb INHALATION ×3 (08:22→20:26)
[2022-03-04] MEDS: iohexol 350 mg/mL 500 mL Btl (per mL) IV (09:04)
--- NOTE | 2022-03-04 10:03 | PM.PN ---
Subjective Subjective: I requested CTA to rule out PE Most likely she will be discharged home tomorrow with PET scan prescription I will call Dr. Centeno myself Patient was a bit short of breath after her CT scan today She is on 2 L for now we will do home O2 evaluation I have updated her family Lactic acid has remained around 4 without fever leukocytosis trending down, cultures negative Vitals/I&O/Wt Last Vital Signs Temp 97.8 F 03/04/22 04:00 Pulse 85 03/04/22 08:22 Resp 16 03/04/22 08:22 BP 147/72 03/04/22 04:00 Pulse Ox 92 03/04/22 08:22 O2 Del Method 03/04/22 08:22 O2 Flow Rate 2 03/04/22 08:22 03/03/22 03/04/22 03/04/22 22:59 06:59 14:59 Intake Total 290 / 1760 1170 / 2930 Output Total 900 / 901 Balance 290 / 1759 270 / 2029 Weight last 48 hrs Weight 77.763 kg Weight 77.791 kg Weight 75.778 kg Physical Exam Narrative: Awake and alert Nonfocal neuro exam No audible stridor or wheezing Currently on 2 L No active chest pain Abdomen soft Pleasant and cooperative Data : 03/04/22 03:50 03/04/22 03:50 Micro: Microbiology 03/02/22 11:52 Legionella Urinary Antigen - Final Urine,Clean Catch 03/02/22 11:52 Bacterial Antigens - Final Urine,Clean Catch 03/02/22 05:15 Blood Culture - Preliminary Blood NEGATIVE TO DATE 03/02/22 05:15 Blood Culture - Preliminary Blood NEGATIVE TO DATE A&P Assessment and plan (1) Hypercalcemia: (2) Pancreatic abnormality: (3) Lactic acidosis: (4) Chest pain: (5) Community acquired pneumonia: (6) Sepsis: (7) Acute respiratory failure with hypoxia: (8) Asplenia: Plan Sepsis related to community-acquired pneumonia Resolved No fever Cultures negative Leukocytosis trending down continue levofloxacin and Zosyn for now considering immunocompromise asplenic patient Request records [facility]ectomy High D-dimer, abnormal lymphadenopathy Concern for malignancy, will do outpatient PET scan I will call Dr. Centeno myself She was given thiamine no chance of metformin toxicity I have changed albuterol to Xopenex yesterday Hiatal hernia Left-sided pain has improved No active chest pain Lactic acid is secondary to most likely underlying bone marrow disorder versus malignancy High LDH noted Continue IV fluids She was never hypoxic, hypotensive Full code Plan to discharge her tomorrow Home O2 evaluation today Acute hypoxia related to COPD and pneumonia Hypercalcemia we will give her calcitonin, I will continue her fluids calcium is improved some extent Updated family Attestations Medical Necessity Statement*: Discharge tomorrow Time Spent in Patient Care: 30 Coding Level of Care Code Acute Electromechanical Assembler for Chg Fwd Diagnoses Hypercalcemia E83.52 Pancreatic abnormality Q45.3 Lactic acidosis E87.20 Chest pain R07.9 Community acquired pneumonia J18.9 Sepsis A41.9 Acute respiratory failure with hypoxia J96.01 Asplenia Q89.01
[2022-03-04] MEDS: pantoprazole DR 40 mg Tablet PO ×2 (10:12→17:42)
[2022-03-04] MEDS: heparin 5,000 unit/mL INJ 1 mL 5000 UNIT SUBCUT ×2 (10:12→23:09)
--- NOTE | 2022-03-04 10:16 | PC.CHAP ---
Pastoral Care Encounter/Spiritual Assessment Type of Contact [] Declined science liaison visit [] Patient/Family/Request visit [] Outpatient visit [] Follow-up visit [] Physician referral [] Code/Alert [x] Routine visit [] Staff referral [] Actively dying [] Patient sleeping [] Family support [] [] Out of room [] Palliative care [] [] Receiving care in room [] Pre-surgical visit [] Trauma [] Long length of stay [] ICU visit [] Other: Relational/Emotional Strength [] Patient feels connected with others/family/visitors/staff [] Distress [] Loneliness/isolation [] Abandonment Spirituality of Patient [x] Person of Mel [] Attends Evangelical of their Mel [] Believes in Prayer [] Reads Bible or Protestant materials [] There are Spiritual issues to be addressed Parking Meter Attendant Interventions [x] Prayer [x] Active listening [] Non-anxious presence [] Spiritual/emotional support [] Crisis/trauma care [] Spiritual counseling [] Bereavement support [] Provided bereavement packet [] Provided Bible/devotional materials [] Provided toy/stuffed animal, coloring book to patient or family member [] Provided Communion [] Anointing/[place] [] Salvation [x] Completed spiritual assessment [] Other: Impact on Illness or Injury [] Angry [] Fearful [] Anxious [] Often cries [] Exhaustion [] Unable to work [] Unable to attend hinduism [] Unable to walk/stand [] Unable to read [] Unable to drive [] Unable to eat/drink [] Unable to sleep [] Unable to be with family [] Patient intubated [] Other: Summary Time spent with patient 5 min
[2022-03-04] MEDS: calcitonin,salmon 200 unit/mL SDV 2mL 100 UNIT SUBCUT (11:03)
[2022-03-04] MEDS: vancomycin 1,000 MG in sodium chloride 0.9% 250 ML 250 MG IV (18:29)
[2022-03-05] VITALS (7 sets, daily range): BP systolic 134–148; BP diastolic 71–72; PULSE 87–90; RESP 16–17; TEMP 36.6–36.8; O2SAT 90–93
[2022-03-05] MEDS: morphine IR 15 mg Tablet PO ×2 (00:45→07:58)
[2022-03-05] MEDS: sodium chloride 0.9% 1,000 ML 100 ML IV (04:50)
[2022-03-05] MEDS: piperacillin-tazobactam 3.375 GM in sodium chloride 0.9% (plus) 50 ML IV (04:51)
[2022-03-05] MEDS: levoFLOXacin 750 mg Tablet PO (05:27)
--- NOTE | 2022-03-05 05:39 | PC.NURSE ---
patients urine looked like the consistency of orange juice with pulp.
[2022-03-05 05:47] LABS: Basophils # 0.1 10^3/uL (0.0-0.1); Basophils % 1.3 %; Eosinophils # 0.3 10^3/uL (0.0-0.8); Eosinophils % 2.4 %; Hemoglobin 10.8 g/dL (11.5-15.3); Lymphocytes % 38.5 %; Mean Corpuscular HGB Conc 32.7 g/dL (30.0-36.0); Mean Corpuscular Hemoglobin 26.3 pg (28.0-34.0); Mean Corpuscular Volume 80.5 fl (81-99); Monocytes # 1.1 10^3/uL (0.2-0.9); Monocytes % 10.4 %; Neutrophils # 4.45 10^3/uL (1.8-7.7); Neutrophils % 43.2 %; Nucleated Red Blood Cells # 0.2 /100WBC; Nucleated Red Blood Cells % 1.7 %; Platelet Count 158 10^3/cmm (130-400); Red Cell Distribution Width 17.8 % (12.1-15.1); White Blood Count 10.3 10^3/uL (4.0-10.0)
[2022-03-05 06:07] LABS: Alanine Aminotransferase 23 U/L (0-33); Albumin Level 3.3 g/dL (3.5-5.2); Alkaline Phosphatase 85 U/L (35-105); Anion Gap 17.1 (5-19); Aspartate Amino Transferase 20 U/L (0-32); Blood Urea Nitrogen 13 mg/dL (8-23); Calcium 9.8 mg/dL (8.5-10.5); Carbon Dioxide 24 mmol/L (22-29); Chloride 96 mmol/L (98-107); Globulin 1.9 g/dL (1.3-4.6); Glucose 80 mg/dL (65-115); Lactate (Lactic Acid level) 3.9 mmol/L (0.5-2.2); Osmolality Calculated 275 mOsm/kg (285-295); Potassium 4.1 mmol/L (3.5-5.1); Sodium 133 mmol/L (136-145); Total Bilirubin 0.6 mg/dL (0.15-1.2); Total Protein 5.2 g/dL (6.6-8.7)
--- NOTE | 2022-03-05 07:34 | PC.NURSE ---
Bedside report given to DOMI Dee at [phone]
[2022-03-05] MEDS: levalbuterol 0.63 mg/3 mL Neb INHALATION (07:51)
--- NOTE | 2022-03-05 08:11 | P.DS_ITS ---
Discharge Providers Date of Admission: 03/02/22 06:19 Date of Discharge: March 05, 2022 Attending Provider at Admission: Sb Villar Attending Provider at Discharge: Nolan Peres MD Primary Care Provider: Adonis Mahajan MD Diagnoses at Discharge Discharge Diagnosis (1) Hypercalcemia: Status: Acute (2) Pancreatic abnormality: Status: Acute (3) Lactic acidosis: Status: Acute (4) Chest pain: Status: Acute (5) Community acquired pneumonia: Status: Acute (6) Sepsis: Status: Acute (7) Acute respiratory failure with hypoxia: Status: Acute (8) Asplenia: Status: Acute Reason for Visit Reason for Visit: CP Hospital Course Hospital Course 72-year-old female who was admitted to the hospital for management of community- acquired pneumonia and sepsis, she has history of asplenia, considered immunocompromise she was kept on dual antipseudomonal coverage she received vancomycin Zosyn and Levaquin. Her leukocytosis improved at the time of discharge it is 10.3, she remained afebrile cultures negative. She does have atypical lymphocytes, are rods present, we have sent cytology for CML, she does have abnormal mediastinal lymphadenopathy, she just quit smoking few months ago, I have called Dr. Calderon to arrange for PET scan and if it is positive then she will need a biopsy she was treated for hypercalcemia with IV fluids and 1 dose of calcitonin. Calcium at the time of discharge is 9.8. Of note she has persistent lactic acidemia she never had any febrile event she was never hypoxic or hypotensive. This most likely is related to underlying possible malignancy or bone marrow disorder. Lactic acid at the time of discharge is 3.9. Home oxygen evaluation requested before discharge. Multiple family meetings were conducted, PCP notified she will need PET scan outpatient pulmonary referral after her PET scan for the biopsy. CTA of chest did not show any PE Pending result of cytology report to rule out CML CTA chest result:- 1.? No evidence of pulmonary embolus. 2.? Small bilateral pleural effusions with compressive atelectasis in the lung bases progressed compared to March 02, 2022. Hazy infiltrates in the dependent lungs bilaterally likely due to edema. 3.? Enlarged anterior prepericardiac lymph nodes the largest measuring up to 2 cm unchanged since March 02, 2022. These are nonspecific but suspicious for recurrence in patient with history of lymphoma. This can be further evaluated whole-body PET/CT. 4.? Slightly enlarged anterior mediastinal and peribronchial lymph nodes unchanged. No axillary lymphadenopathy. 5.? Moderate esophageal hiatal hernia Physical Exam Narrative: Patient is awake and alert Currently on 3 L of oxygen Hemodynamically stable Family at the bedside Nonfocal neuro exam Bilateral breast without active rhonchi or crackles Abdomen soft S1, S2 Discharge Data Studies Completed and Pending Completed Studies During Hospitalization Category Date Time Status CTA PE [CT angio chest PE protcl [id number]] Routine Cat Scan 03/04/22 08:15 Completed CTA chest [CT angio chest w abd pel w con] Stat Cat Scan 03/02/22 03:41 Completed XR chest 1V portable [id number] Stat Exams 03/02/22 03:07 Completed Pending at discharge Category Date Time Status Blood Culture Stat Lab 03/02/22 05:15 Results Sputum Culture and Gram Stain Routine Lab 03/02/22 10:58 Uncollected Vancomycin Trough Timed Lab 03/05/22 17:00 Ordered Radiology Impressions Chest X-Ray 03/02/22 03:07 IMPRESSION: Patchy right basilar atelectasis or other infiltrates. Small pleural effusions. Question mild pulmonary vascular congestion. Chest/Abdomen/Pelvis CT 03/02/22 03:41 IMPRESSION: No acute findings. IMPRESSION: Question mild peripancreatic haziness which may be seen with pancreatitis. Differential includes volume averaging artifact. Correlate with pancreatic enzymes. ADDENDUM: 03/02/22 0517 Impression 3: There are slightly prominent mediastinal lymph nodes, please correlate with prior history. Findings may be reactive or malignant in etiology. Chest CTA 03/04/22 08:15 IMPRESSION: 1. No evidence of pulmonary embolus. 2. Small bilateral pleural effusions with compressive atelectasis in the lung bases progressed compared to March 02, 2022. Hazy infiltrates in the dependent lungs bilaterally likely due to edema. 3. Enlarged anterior prepericardiac lymph nodes the largest measuring up to 2 cm unchanged since March 02, 2022. These are nonspecific but suspicious for recurrence in patient with history of lymphoma. This can be further evaluated whole-body PET/CT. 4. Slightly enlarged anterior mediastinal and peribronchial lymph nodes unchanged. No axillary lymphadenopathy. 5. Moderate esophageal hiatal hernia. Laboratory Results WBC 10.3 10^3/uL (4.0-10.0) H 03/05/22 05:37 RBC 4.10 10^6/uL (4.1-5.3) 03/05/22 05:37 Hgb 10.8 g/dL (11.5-15.3) L 03/05/22 05:37 Hct 33.0 % (37.0-47.0) L 03/05/22 05:37 MCV 80.5 fl (81-99) L 03/05/22 05:37 MCH 26.3 pg (28.0-34.0) L 03/05/22 05:37 MCHC 32.7 g/dL (30.0-36.0) 03/05/22 05:37 RDW 17.8 % (12.1-15.1) H 03/05/22 05:37 Plt Count 158 10^3/cmm (130-400) 03/05/22 05:37 MPV 11.0 fL (7.4-10.4) H 03/05/22 05:37 Neut % (Auto) 43.2 % 03/05/22 05:37 Lymph % (Auto) 38.5 % 03/05/22 05:37 [place] % (Auto) 10.4 % 03/05/22 05:37 Eos % (Auto) 2.4 % 03/05/22 05:37 Baso % (Auto) 1.3 % 03/05/22 05:37 Neut # (Auto) 4.45 10^3/uL (1.8-7.7) 03/05/22 05:37 Lymph # (Auto) 4.0 10^3/uL (0.8-4.8) 03/05/22 05:37 [place] # (Auto) 1.1 10^3/uL (0.2-0.9) H 03/05/22 05:37 Eos # (Auto) 0.3 10^3/uL (0.0-0.8) 03/05/22 05:37 Baso # (Auto) 0.1 10^3/uL (0.0-0.1) 03/05/22 05:37 Nucleated RBC % (auto) 1.7 % 03/05/22 05:37 Nucleated RBCs # 0.2 /100WBC 03/05/22 05:37 Jordin Rods 1+ H 03/03/22 03:40 Poikilocytosis 1+ H 03/03/22 03:40 Anisocytosis 1+ H 03/03/22 03:40 PT 13.50 SECONDS (12.1-14.9) 03/04/22 03:50 INR 1.00 (0.8-1.2) 03/04/22 03:50 APTT 29.6 SECONDS (23.9-36.7) 03/04/22 03:50 Fibrinogen 216 mg/dL (174-498) 03/04/22 03:50 Fibrin Degrad Products Pos, 10-40 ug/mL (NEG) H 03/04/22 03:50 D-Dimer 1.47 ug/mIFEU (0-0.59) H 03/04/22 03:50 Sodium 133 mmol/L (136-145) L 03/05/22 05:37 Potassium 4.1 mmol/L (3.5-5.1) 03/05/22 05:37 Chloride 96 mmol/L (98-107) L 03/05/22 05:37 Carbon Dioxide 24 mmol/L (22-29) 03/05/22 05:37 Anion Gap 17.1 (5-19) 03/05/22 05:37 BUN 13 mg/dL (8-23) 03/05/22 05:37 Creatinine 0.5 mg/dL (0.5-0.9) 03/05/22 05:37 GFR Calculation 122.0 mL/min (90-130) 03/05/22 05:37 Glucose 80 mg/dL (65-115) 03/05/22 05:37 Calculated Osmolality 275 mOsm/kg (285-295) L 03/05/22 05:37 Lactate 3.9 mmol/L (0.5-2.2) H 03/05/22 05:37 Calcium 9.8 mg/dL (8.5-10.5) 03/05/22 05:37 Magnesium 1.3 mg/dL (1.7-2.3) L 03/03/22 03:40 Total Bilirubin 0.6 mg/dL (0.15-1.2) 03/05/22 05:37 AST 20 U/L (0-32) 03/05/22 05:37 ALT 23 U/L (0-33) 03/05/22 05:37 Alkaline Phosphatase 85 U/L (35-105) 03/05/22 05:37 Lactate Dehydrogenase 692 U/L (135-214) H 03/04/22 03:50 Troponin T Baseline 9 ng/L (0-10) 03/02/22 03:12 Troponin T 120 Minute 9.28 ng/L (0-10) 03/02/22 05:05 Delta Troponin T 0.28 ABS# (0-10) 03/02/22 05:05 Troponin T Hi Sens 6Hr 9.08 ng/L (0-10) 03/02/22 09:50 Troponin T Hi Sens 6Hr Delta 0.08 ng/L (0-12) 03/02/22 09:50 NT-Pro-B Natriuret Pep 337 pg/mL (0-125) H 03/02/22 03:12 Total Protein 5.2 g/dL (6.6-8.7) L 03/05/22 05:37 Albumin 3.3 g/dL (3.5-5.2) L 03/05/22 05:37 Globulin 1.9 g/dL (1.3-4.6) 03/05/22 05:37 Lipase 34 U/L (13-60) 03/03/22 03:40 Coronavirus 229E (PCR) Not detected (NOT DETECT) 03/02/22 06:30 SARS-CoV-2 (PCR) Not detected (NOT DETECT) 03/02/22 06:30 SARS-CoV-2 Ag (Rapid) negative (Negative) 03/02/22 05:48 Vitals Last Vital Signs Temp 97.9 F 03/05/22 03:50 Pulse 87 03/05/22 07:51 Resp 16 03/05/22 07:58 BP 148/72 03/05/22 03:50 Pulse Ox 91 03/05/22 07:51 O2 Del Method 03/05/22 07:51 O2 Flow Rate 4 03/05/22 07:51 Discharge Plan Discharge Patient Disposition: Home Condition: Stable Prescriptions: New levofloxacin 750 mg Tablet 750 mg PO DAILY@0600 Qty: 7 0RF Trelegy Ellipta 100-62.5-25 mcg blister with device 1 inh inhalation DAILY Qty: 60 2RF albuterol sulfate 90 mcg/actuation HFA aerosol inhaler 2 inh inhalation QID PRN (Reason: shortness of breath or wheezing) Qty: 8.5 2RF Continued alprazolam 1 mg tablet 0.5 mg PO DAILY pantoprazole 40 mg tablet,delayed release (DR/EC) 40 mg PO DAILY Qty: 30 11RF hydrochlorothiazide 25 mg tablet See Rx Instructions .ROUTE .COMPLEX Qty: 30 11RF Dose Instruction: TAKE 1 TABLET BY MOUTH EVERY DAY Rx Instructions: TAKE 1 TABLET BY MOUTH EVERY DAY Discharge Orders: Discharge Order (Routine); Ordered 03/05/22 Ordered By: Nolan Peres Other Ambulatory Orders: DME: Oxygen (Order) Location: None Selected Ordered By: Nolan Peres Referrals: Adonis Mahajan MD [Primary Care Provider] - 03/06/22 7:00 am Patient Instructions: Albuterol (By breathing), Levofloxacin (By mouth), Fluticasone/Umeclidinium/Vilanterol (By breathing), Using Oxygen at Home (GEN), Opioid Safety, Pain Management Discharge Attestations Time Spent in Discharge Care*: less than 30 min Quality Metrics Clinical Quality Measures [ No reported AMI, CVA or VTE this stay] Coding Level of Care Code Acute Chg [facility] note Diagnoses Hypercalcemia E83.52 Pancreatic abnormality Q45.3 Lactic acidosis E87.20 Chest pain R07.9 Community acquired pneumonia J18.9 Sepsis A41.9 Acute respiratory failure with hypoxia J96.01 Asplenia Q89.01
[2022-03-05] MEDS: calcitonin,salmon 200 unit/mL SDV 2mL 100 UNIT SUBCUT (08:56)
[2022-03-05] MEDS: pantoprazole DR 40 mg Tablet PO (09:04)
--- NOTE | 2022-03-05 09:56 | PC.SOCIAL ---
IMM Update pg 2 of IMM updated and reviewed w/ patient. Copy provided and Copy dated, initialed and placed in chart.
[2022-03-05 13:18] LABS: Leukemia Profile (BBPL) See Report; Lymphoma Profile (BBPL) See Report
== END 2022-03-05 12:03 | disposition home or self-care (01) | DRG 871 ==
LOC: ER 06:31 → MEDSURG 10:09
PROVIDERS: Admitting Provider Internal Medicine; Emergency Provider Emergency Medicine; PCP Family Medicine; Visit Provider Internal Medicine
DX: A41.9 Sepsis, unspecified organism (principal); J18.9 Pneumonia, unspecified organism; J96.01 Acute respiratory failure with hypoxia; E87.29 Other acidosis; E87.1 Hypo-osmolality and hyponatremia; J44.0 Chronic obstructive pulmonary disease with (acute) lower respiratory infection; D84.89 Other immunodeficiencies; E87.6 Hypokalemia; E83.42 Hypomagnesemia; R65.20 Severe sepsis without septic shock; E83.52 Hypercalcemia; K75.81 Nonalcoholic steatohepatitis (NASH); R59.0 Localized enlarged lymph nodes; R79.1 Abnormal coagulation profile; R10.13 Epigastric pain; R16.0 Hepatomegaly, not elsewhere classified; R07.81 Pleurodynia; I10 Essential (primary) hypertension; F17.201 Nicotine dependence, unspecified, in remission; K44.9 Diaphragmatic hernia without obstruction or gangrene; Z90.81 Acquired absence of spleen; Z90.49 Acquired absence of other specified parts of digestive tract; Z79.1 Long term (current) use of non-steroidal anti-inflammatories (NSAID); Z85.72 Personal history of non-Hodgkin lymphomas
CPT/HCPCS: 36415; 71045; 71275; 74177; 80053; 80503; 83605; 83615; 83690; 83735; 83880; 84484; 85025; 85362; 85378; 85384; 85610; 85730; 86403; 87040; 87426; 87449; 87635; 88184; 88185; 93005; 94640; 94664; 94760; 96372; 99285; J0456; J0630; J0696; J1644; J1885; J2405; J2543; J3010; J3370; J3411; J3490; J3535; J7030; J7050; J7614; Q9967

== ENCOUNTER 2022-03-20 14:00 | Oncology outpatient (recurring) (ONCR) | payer MEDICARE, OTHER, SELFPAY | END 2022-04-02 23:59 | disposition home or self-care (01) | PROVIDERS: PCP Family Medicine; Visit Provider Internal Medicine Hematology & Oncology | DX: Z53.9 Procedure and treatment not carried out, unspecified reason (principal); C83.07 Small cell B-cell lymphoma, spleen | CPT/HCPCS: 99214 ==